=== PATIENT | male | born 1960 | race Two or more races ===

== ENCOUNTER 2017-03-07 12:54 | Inpatient (IN) | payer OTHER ==
[2017-03-07 14:42] VITALS: BMI 18.4
--- NOTE | 2017-03-07 17:18 | HP ---
COWS - Scale Resting Pulse: 0= [place] 80 or Below Sweatin=Flushed/Facial Moisture Restless Observation: 3= Extraneous Movement Pupil Size: 2= Moderately Dilated Bone or Joint Aches: 2= Severe Diffuse Aches Runny Nose/ Eye Tearin= Runny Nose/Eyes GI Upset > 30mins: 3= Vomiting/Diarrhea Tremor Observation: 2= Slight Tremor Visible Yawning Observation: 2= >3x During Session Anxiety or Irritability: 2=Irritable/Anxious Goose Flesh Skin: 0=Smooth Skin COWS Score: 20 CIWA Score - CIWA Score Nausea/Vomitin Muscle Tremors: 3 Anxiety: 3 Agitation: 3 Paroxysmal Sweats: 2 Orientation: 0-Oriented Tacttile Disturbances: 2-Mild Itch/Numbness/Burn Auditory Disturbances: 2-Mild Harshness/Frighten Visual Disturbances: 2-Mild Sensitivity Headache: 2-Mild CIWA-Ar Total Score: 22 Admission ROS BHS - HPI Chief Complaint: I NEED HELP TO STOP USING HEROIN,ALCOHOL AND COCAINE Allergies/Adverse Reactions: Allergies Allergy/AdvReac Type Severity Reaction Status Date / Time No Known Allergies Allergy Verified 03/07/17 17:12 History of Present Illness: THIS 56 YEARS OLD MALE SEEKING HELP TO STOP USING HEROIN,ALCOHOL AND COCAINE, LAST DETOX 01/11 [facility] NOT COMPLETED LONGEST PERIOD SOBRIETY 5 YEARS Exam Limitations: No Limitations - Ebola screening Have you traveled outside of the country in the last 21 days: No Have you had contact with anyone from an Ebola affected area: No Have you been sick,other than usual withdrawal symptoms: No Do you have a fever: No - Review of Systems Constitutional: Chills, Loss of Appetite, Night Sweats, Changes in sleep, Weakness, Unintentional Wgt. Loss EENT: reports: Tearing, Nose Congestion Respiratory: reports: No Symptoms reported, Other (MARTITA) Cardiac: reports: Palpitations GI: reports: Diarrhea, Nausea, Vomiting, Abdominal cramping : reports: No Symptoms Reported Musculoskeletal: reports: Back Pain, Joint Pain, Muscle Pain, Joint Stiffness Integumentary: reports: Dryness Neuro: reports: Headache, Tremors Endocrine: reports: No Symptoms Reported Hematology: reports: No Symptoms Reported Psychiatric: reports: Judgement Intact, Mood/Affect Appropiate, Orientated x3 ( INSOMNIA), Depressed Patient History - Patient Medical History Hx Anemia: No Hx Asthma: Yes (ON ALBUTEROL INHALER) Hx Chronic Obstructive Pulmonary Disease (COPD): No Hx Cancer: No Hx Cardiac Disorders: No Hx Congestive Heart Failure: No Hx Hypertension: No Hx Hypercholesterolemia: No Hx Pacemaker: No HX Cerebrovascular Accident: No Hx Seizures: No Hx Dementia: No Hx Diabetes: No Hx Gastrointestinal Disorders: No Hx Liver Disease: No Hx Genitourinary Disorders: No Hx Sexually Transmitted Disorders: No Hx Renal Disease (ESRD): No Hx Thyroid Disease: No Hx Human Immunodeficiency Virus (HIV): No (LAST 2014 NEGATIVE) Hx Hepatitis C: No Hx Depression: Yes (ANXIETY ) Hx Suicide Attempt: No Hx Bipolar Disorder: No Hx Schizophrenia: No Other Medical History: NO SUICIDAL,NO HOMICIDAL,INSOMNIA - Patient Surgical History Past Surgical History: No - PPD History Previous Implant?: Yes Documented Results: Negative w/proof Implanted On Prior [facility] Admission?: Yes PPD to be Administered?: Yes - Smoking Cessation Smoking history: Current every day smoker Have you smoked in the past 12 months: Yes Aproximately how many cigarettes per day: 10 Cigars Per Day: 0 Hx Chewing Tobacco Use: No Initiated information on smoking cessation: Yes 'Breaking Loose' booklet given: 03/07/17 - Substance & Tx. History Hx Alcohol Use: Yes Hx Substance Use: Yes Substance Use Type: Alcohol, Cocaine, Heroin Hx Substance Use Treatment: Yes ([facility] 09/12 NOT COMPLETED) - Substances Abused Alcohol Route: Oral Frequency: Daily Amount used: LIQUOR- 1 PINT, BEER- 1 SIX PACK Age of first use: 13 Date of Last Use: 03/07/17 Heroin Route: Inhalation Frequency: Daily Amount used: 25 BAGS Age of first use: 17 Date of Last Use: 03/07/17 Crack Route: Smoking Frequency: Daily Amount used: 15 BAGS Age of first use: 25 Date of Last Use: 03/07/17 Family Disease History - Family Disease History Family Disease History: Other: Father (DSA,), Mother (ALCOHOL,) Admission Physical Exam S - Vital Signs Vital Signs: Vital Signs - 24 hr 03/07/17 14:37 Temperature 97 F L Pulse Rate 80 Respiratory 20 Rate Blood Pressure 129/72 - Physical General Appearance: Yes: Moderate Distress, Tremorous, Irritable, Sweating, Anxious HEENTM: Yes: Hearing grossly Normal, Normal ENT Inspection, Nasal Congestion Respiratory: Yes: Lungs Clear, Normal Breath Sounds, No Respiratory Distress Neck: Yes: Supple, Trachea in good position Breast: Yes: Within Normal Limits Cardiology: Yes: Within Normal Limits, Regular Rhythm, Regular Rate, S1, S2 Abdominal: Yes: Within Normal Limits, Normal Bowel Sounds, Non Tender, Flat, Soft Genitourinary: Yes: Within Normal Limits Musculoskeletal: Yes: Within Normal Limits, full range of Motion, Back pain, Joint Stiffness, Muscle Pain Extremities: Yes: Normal Inspection, Normal Range of Motion, Tremors, Other ( OLD INJURY RIGHT KNEE) 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, Fully Oriented, Alert, Motor Strength 5/5 Integumentary: Yes: Dry Lymphatic: Yes: Within Normal Limits - Diagnostic (1) Opioid dependence with withdrawal Current Visit: Yes Status: Acute (2) Alcohol dependence with uncomplicated withdrawal Current Visit: Yes Status: Acute (3) Cocaine dependence Current Visit: Yes Status: Acute (4) Asthma Current Visit: Yes Status: Acute (5) Weight loss Current Visit: Yes Status: Acute (6) Depression Current Visit: Yes Status: Acute (7) Insomnia Current Visit: Yes Status: Acute (8) Right knee injury Current Visit: Yes Status: Acute (9) Nicotine dependence Current Visit: Yes Status: Acute Cleared for Admission S - Detox or Rehab [facility] Level of Care: Medically Managed Detox Regimen/Protocol: Methadone/Librium S Breath Alcohol Content Breath Alcohol Content: 0 Urine Drug Screen - Results Drug Screen Negative: No Urine Drug Screen Results: JESSE-Cocaine, OPI-Opiates, OXY-Oxycodone
[2017-03-07] MEDS ORDERED: LOPERAMIDE HCL 2 MG CAPSULE PO PRN (17:30)
[2017-03-07] MEDS ORDERED: guaiFENesin/D-METHORPHAN HB 10 ML UNIT-DOSE CUPS PO PRN (17:30)
[2017-03-07] MEDS ORDERED: P-EPHED 60MG/TRIPROLIDI 2.5MG TABLET PO PRN (17:30)
[2017-03-07] MEDS ORDERED: hydrOXYzine PAMOATE 25 MG CAPSULE (FP) PO PRN (17:30)
[2017-03-07] MEDS ORDERED: NICOTINE POLACRILEX 2 MG GUM BC PRN (17:30)
[2017-03-07] MEDS ORDERED: MENTHOL/PHENOL 1 EACH UD MM PRN (17:30)
[2017-03-07] MEDS ORDERED: MAGNESIUM CITRATE 300 ML BOTTLE PO PRN (17:30)
[2017-03-07] MEDS ORDERED: diphenhydrAMINE HCL 50 MG CAPSULE PO PRN (17:30)
[2017-03-07] MEDS ORDERED: ACETAMINOPHEN 325 MG TABLET (FP) PO PRN (17:30)
[2017-03-07] MEDS ORDERED: chlordiazePOXIDE HCL 25 MG CAPSULE PO PRN (17:30)
[2017-03-07] MEDS ORDERED: MAG HYDROX/AL HYDROX/SIMETH 30 ML UNIT-DOSE CUP PO PRN (17:30)
[2017-03-07] MEDS ORDERED: MAGNESIUM HYDROX 2400MG/30ML ORAL SUSPENSION 30 ML CUP PO PRN (17:30)
[2017-03-07] MEDS ORDERED: chlordiazePOXIDE HCL 25 MG CAPSULE PO ONE (18:30)
[2017-03-07] MEDS ORDERED: METHADONE HCL 10 MG TABLET (FOR DETOX USE ONLY) PO ONE ×2 (18:30→23:00)
[2017-03-07] MEDS: NICOTINE 21 MG/24 HOURS TOPICAL PATCH TD SCH (19:25)
[2017-03-07] MEDS: ALBUTEROL SO4 6.7 GM HFA INHALER IH PRN (19:26)
[2017-03-07] MEDS: IBUPROFEN 400 MG TABLET (FP) PO PRN (21:04)
[2017-03-07] MEDS: cloNIDine HCL 0.1 MG TABLET PO SCH (22:38)
[2017-03-07] MEDS: chlordiazePOXIDE HCL 25 MG CAPSULE PO SCH (22:38)
[2017-03-07] MEDS: THIAMINE HCL 100 MG TABLET (FP) PO SCH (22:38)
[2017-03-07] MEDS: CYCLOBENZAPRINE HCL 10 MG TABLET (FP) PO PRN (23:20)
[2017-03-07 23:34] LABS: URINE APPEARANCE CLEAR; URINE BILIRUBIN NEGATIVE (NEGATIVE); URINE BLOOD NEGATIVE (NEGATIVE); URINE COLOR AMBER; URINE GLUCOSE (UA) NEGATIVE (NEGATIVE); URINE KETONE TRACE (NEGATIVE); URINE LEUK ESTERASE NEGATIVE (NEGATIVE); URINE NITRITE NEGATIVE (NEGATIVE); URINE UROBILINOGEN 2.0 E.U/dl E.U./dl (0.2-1.0)
[2017-03-07 23:36] LABS: URINE PROTEIN 1+ (NEGATIVE)
[2017-03-07 23:39] LABS: URINE HYALINE CAST 15 /lpf; URINE MUCUS MANY; URINE RBC 1 /hpf (0-3); URINE WBC 1 /hpf (3-5)
[2017-03-07] MEDS: METHYL SALICYLATE/MENTHOL OINT 30 GM TUBE TP SCH (23:47)
[2017-03-08] MEDS: IBUPROFEN 400 MG TABLET (FP) PO PRN (04:00)
[2017-03-08] MEDS: chlordiazePOXIDE HCL 25 MG CAPSULE PO SCH ×4 (04:01→22:53)
[2017-03-08] MEDS ORDERED: METHADONE HCL 10 MG TABLET (FOR DETOX USE ONLY) PO SCH (10:00)
[2017-03-08 10:04] LABS: MCH 31.3 pg (25.7-33.7); MEAN CELL VOLUME 92.1 fl (80-96); MEAN PLT VOLUME 11.3 fl (7.5-11.1); PLATELET COUNT 158 K/MM3 (134-434); RDW 13.2 % (11.9-15.9); WHITE BLOOD COUNT 9.6 K/mm3 (4.0-10.0)
[2017-03-08 10:37] LABS: ALBUMIN 4.5 g/dl (3.4-5.0); ALK PHOS 121 U/L (45-117); ANION GAP 8 (8-16); BILIRUBIN,TOTAL 0.6 mg/dL (0.2-1.0); CALCIUM 9.4 mg/dL (8.5-10.1); CO2 30 mmol/L (21-32); COCKROFT - GAULT 59.97; CREATININE 1.2 mg/dL (0.7-1.3); GLUCOSE,RANDOM 120 mg/dL (74-106); SGOT/AST 24 U/L (15-37); SGPT/ALT 21 U/L (12-78); TOT PROT 7.7 g/dl (6.4-8.2)
--- NOTE | 2017-03-08 10:57 | PN ---
S CIWA - CIWA Score Nausea/Vomitin Muscle Tremors: 3 Anxiety: 3 Paroxysmal Sweats: 1-Minimal Palms Moist Orientation: 0-Oriented Tacttile Disturbances: 1-Very Mild Itch/Numbness Auditory Disturbances: 1-Very Mild Visual Disturbances: 1-Very Mild Sensitivity Headache: 2-Mild BHS COWS - Scale Resting Pulse: 0= [place] 80 or Below Sweatin= Chills/Flushing Restless Observation: 3= Extraneous Movement Pupil Size: 1= Pupils >than Normal Bone or Joint Aches: 2= Severe Diffuse Aches Runny Nose/ Eye Tearin= Runny Nose/Eyes GI Upset > 30mins: 3= Vomiting/Diarrhea Tremor Observation of Outstretched Hands: 2= Slight Tremor Visible Yawning Observation: 1= 1-2x During Session Anxiety or Irritability: 2=Irritable/Anxious Goose Flesh Skin: 0=Smooth Skin COWS Score: 17 BHS Progress Note (SOAP) Subjective: ALERT,IRRITABLE,ANXIOUS,INTERRUPTED SLEEP,PAIN IN THE BODY AND BACK,TREMOR Objective: 03/08/17 10:54 Vital Signs Temperature 98.1 F 03/08/17 06:00 Pulse Rate 71 03/08/17 06:00 Respiratory Rate 16 03/08/17 06:00 Blood Pressure 100/55 03/08/17 06:00 O2 Sat by Pulse Oximetry (%) EKG NSR,INVERTED T IN 1 AND AVL,LVH NO CHEST PAIN,NO SOB,NO DIZZINESS Laboratory Last Values WBC 9.6 K/mm3 (4.0-10.0) 03/08/17 06:00 RBC 4.41 M/mm3 (4.00-5.60) 03/08/17 06:00 Hgb 13.8 GM/dL (11.7-16.9) 03/08/17 06:00 Hct 40.7 % (35.4-49) 03/08/17 06:00 MCV 92.1 fl (80-96) 03/08/17 06:00 MCHC 34.0 g/dl (32.0-35.9) 03/08/17 06:00 RDW 13.2 % (11.9-15.9) 03/08/17 06:00 Plt Count 158 K/MM3 (134-434) 03/08/17 06:00 MPV 11.3 fl (7.5-11.1) H 03/08/17 06:00 Sodium 138 mmol/L (136-145) 03/08/17 06:00 Potassium 3.9 mmol/L (3.5-5.1) 03/08/17 06:00 Chloride 100 mmol/L (98-107) 03/08/17 06:00 Carbon Dioxide 30 mmol/L (21-32) 03/08/17 06:00 Anion Gap 8 (8-16) 03/08/17 06:00 BUN 19 mg/dL (7-18) H 03/08/17 06:00 Creatinine 1.2 mg/dL (0.7-1.3) 03/08/17 06:00 Creat Clearance w eGFR > 60 (>60) 03/08/17 06:00 Random Glucose 120 mg/dL (74-106) H 03/08/17 06:00 Calcium 9.4 mg/dL (8.5-10.1) 03/08/17 06:00 Total Bilirubin 0.6 mg/dL (0.2-1.0) 03/08/17 06:00 AST 24 U/L (15-37) 03/08/17 06:00 ALT 21 U/L (12-78) 03/08/17 06:00 Alkaline Phosphatase 121 U/L (45-117) H 03/08/17 06:00 Total Protein 7.7 g/dl (6.4-8.2) 03/08/17 06:00 Albumin 4.5 g/dl (3.4-5.0) 03/08/17 06:00 Urine Color Vaishali 03/07/17 23:26 Urine Appearance Clear 03/07/17 23:26 Urine pH 5.0 (5.0-8.0) 03/07/17 23:26 Ur Specific [place] >= 1.030 (1.005-1.025) H 03/07/17 23:26 Urine Protein 1+ (NEGATIVE) H 03/07/17 23:26 Urine Glucose (UA) Negative (NEGATIVE) 03/07/17 23:26 Urine Ketones Trace (NEGATIVE) H 03/07/17 23:26 Urine Blood Negative (NEGATIVE) 03/07/17 23: Urine Nitrite Negative (NEGATIVE) 03/07/17 23:26 Urine Bilirubin Negative (NEGATIVE) 03/07/17 23:26 Urine Urobilinogen 2.0 e.u/dl E.U./dl (0.2-1.0) 03/07/17 23:26 Ur Leukocyte Esterase Negative (NEGATIVE) 03/07/17 23:26 Urine RBC 1 /hpf (0-3) 03/07/17 23:26 Urine WBC 1 /hpf (3-5) 03/07/17 23:26 Ur Epithelial Cells Rare /hpf (FEW) 03/07/17 23:26 Hyaline Casts 15 /lpf 03/07/17 23:26 Urine Mucus Many 03/07/17 23:26 RPR Titer Nonreactive (NONREACTIVE) 03/08/17 06:00 Assessment: 03/08/17 10:56 WITHDRAWAL SYMPTOM Plan: CONTINUE DETOX,INITIAL GLUCOSE IS 120,FASTING BLOOD GLUCOSE IN AM
[2017-03-08] MEDS: cloNIDine HCL 0.1 MG TABLET PO SCH ×2 (11:13→22:52)
[2017-03-08] MEDS: PRENATAL VITAMINS W/ FOLIC ACID TABLET (FP) PO SCH (11:13)
[2017-03-08] MEDS: NICOTINE 21 MG/24 HOURS TOPICAL PATCH TD SCH (11:14)
[2017-03-08] MEDS: METHYL SALICYLATE/MENTHOL OINT 30 GM TUBE TP SCH ×2 (11:16→22:52)
--- NOTE | 2017-03-08 11:20 | EKG ---
Test Reason : Blood Pressure : / mmHG Vent. Rate : 066 BPM Atrial Rate : 066 BPM P-R Int : 166 ms QRS Dur : 092 ms QT Int : 384 ms P-R-T Axes : 000 128 128 degrees QTc Int : 402 ms NORMAL SINUS RHYTHM LEFT POSTERIOR FASCICULAR BLOCK VOLTAGE CRITERIA FOR LEFT VENTRICULAR HYPERTROPHY NONSPECIFIC ST ABNORMALITY ABNORMAL ECG NO PREVIOUS ECGS AVAILABLE Confirmed by PHILLIP VALENCIA MD ([id number]) on 03/08/2017 11:20:11 AM Referred By: Confirmed By:PHILLIP VALENCIA MD
[2017-03-08] MEDS: ALBUTEROL SO4 6.7 GM HFA INHALER IH PRN (18:27)
--- NOTE | 2017-03-08 19:27 | CONSULT ---
[facility] Psychiatric Consult - Data Date of interview: 03/08/17 Admission source: [facility] Identifying data: Approached for psychiatric interview.Patient refused.Nursing staff is made aware.
[2017-03-08] MEDS: THIAMINE HCL 100 MG TABLET (FP) PO SCH (22:52)
[2017-03-08] MEDS: CYCLOBENZAPRINE HCL 10 MG TABLET (FP) PO PRN (22:52)
[2017-03-09] MEDS: chlordiazePOXIDE HCL 25 MG CAPSULE PO SCH ×3 (06:19→17:28)
[2017-03-09] MEDS: cloNIDine HCL 0.1 MG TABLET PO SCH ×2 (11:06→22:22)
[2017-03-09] MEDS: PRENATAL VITAMINS W/ FOLIC ACID TABLET (FP) PO SCH (11:06)
[2017-03-09] MEDS: METHADONE HCL 5 MG TABLET (FOR DETOX USE ONLY) PO SCH (11:06)
[2017-03-09] MEDS: METHYL SALICYLATE/MENTHOL OINT 30 GM TUBE TP SCH ×2 (11:07→22:24)
[2017-03-09] MEDS: NICOTINE 21 MG/24 HOURS TOPICAL PATCH TD SCH (11:07)
--- NOTE | 2017-03-09 13:05 | PN ---
S CIWA - CIWA Score Nausea/Vomitin Muscle Tremors: 3 Anxiety: 3 Agitation: 2 Paroxysmal Sweats: 1-Minimal Palms Moist Orientation: 0-Oriented Tacttile Disturbances: 1-Very Mild Itch/Numbness Auditory Disturbances: 1-Very Mild Visual Disturbances: 1-Very Mild Sensitivity Headache: 2-Mild CIWA-Ar Total Score: 17 BHS COWS - Scale Resting Pulse: 0= [place] 80 or Below Sweatin= Chills/Flushing Restless Observation: 3= Extraneous Movement Pupil Size: 1= Pupils >than Normal Bone or Joint Aches: 2= Severe Diffuse Aches Runny Nose/ Eye Tearin= Nasal Congestion GI Upset > 30mins: 2= Nausea/Diarrhea Tremor Observation of Outstretched Hands: 2= Slight Tremor Visible Yawning Observation: 1= 1-2x During Session Anxiety or Irritability: 2=Irritable/Anxious Goose Flesh Skin: 0=Smooth Skin COWS Score: 15 BHS Progress Note (SOAP) Subjective: ALERT,IRRITABLE,ANXIOUS,INTERRUPTED SLEEP,PAIN IN THE BODY AND BACK Objective: 03/09/17 13:04 Vital Signs Temperature 97 F L 03/09/17 10:31 Pulse Rate 64 03/09/17 10:31 Respiratory Rate 16 03/09/17 10:31 Blood Pressure 118/68 03/09/17 10:31 O2 Sat by Pulse Oximetry (%) 03/09/17 13:04 Laboratory Last Values WBC 9.6 K/mm3 (4.0-10.0) 03/08/17 06:00 RBC 4.41 M/mm3 (4.00-5.60) 03/08/17 06:00 Hgb 13.8 GM/dL (11.7-16.9) 03/08/17 06:00 Hct 40.7 % (35.4-49) 03/08/17 06:00 MCV 92.1 fl (80-96) 03/08/17 06:00 MCHC 34.0 g/dl (32.0-35.9) 03/08/17 06:00 RDW 13.2 % (11.9-15.9) 03/08/17 06:00 Plt Count 158 K/MM3 (134-434) 03/08/17 06:00 MPV 11.3 fl (7.5-11.1) H 03/08/17 06:00 Sodium 138 mmol/L (136-145) 03/08/17 06:00 Potassium 3.9 mmol/L (3.5-5.1) 03/08/17 06:00 Chloride 100 mmol/L (98-107) 03/08/17 06:00 Carbon Dioxide 30 mmol/L (21-32) 03/08/17 06:00 Anion Gap 8 (8-16) 03/08/17 06:00 BUN 19 mg/dL (7-18) H 03/08/17 06:00 Creatinine 1.2 mg/dL (0.7-1.3) 03/08/17 06:00 Creat Clearance w eGFR > 60 (>60) 03/08/17 06:00 Random Glucose 120 mg/dL (74-106) H 03/08/17 06:00 Fasting Glucose 90 mg/dL (70-105) 03/09/17 07:40 Calcium 9.4 mg/dL (8.5-10.1) 03/08/17 06:00 Total Bilirubin 0.6 mg/dL (0.2-1.0) 03/08/17 06:00 AST 24 U/L (15-37) 03/08/17 06:00 ALT 21 U/L (12-78) 03/08/17 06:00 Alkaline Phosphatase 121 U/L (45-117) H 03/08/17 06:00 Total Protein 7.7 g/dl (6.4-8.2) 03/08/17 06:00 Albumin 4.5 g/dl (3.4-5.0) 03/08/17 06:00 Urine Color Vaishali 03/07/17 23:26 Urine Appearance Clear 03/07/17 23:26 Urine pH 5.0 (5.0-8.0) 03/07/17 23:26 Ur Specific [place] >= 1.030 (1.005-1.025) H 03/07/17 23:26 Urine Protein 1+ (NEGATIVE) H 03/07/17 23:26 Urine Glucose (UA) Negative (NEGATIVE) 03/07/17 23:26 Urine Ketones Trace (NEGATIVE) H 03/07/17 23:26 Urine Blood Negative (NEGATIVE) 03/07/17 23:26 Urine Nitrite Negative (NEGATIVE) 03/07/17 23:26 Urine Bilirubin Negative (NEGATIVE) 03/07/17 23:26 Urine Urobilinogen 2.0 e.u/dl E.U./dl (0.2-1.0) 03/07/17 23:26 Ur Leukocyte Esterase Negative (NEGATIVE) 03/07/17 23:26 Urine RBC 1 /hpf (0-3) 03/07/17 23:26 Urine WBC 1 /hpf (3-5) 03/07/17 23:26 Ur Epithelial Cells Rare /hpf (FEW) 03/07/17 23:26 Hyaline Casts 15 /lpf 03/07/17 23:26 Urine Mucus Many 03/07/17 23:26 RPR Titer Nonreactive (NONREACTIVE) 03/08/17 06:00 Assessment: 03/09/17 13:05 WITHDRAWAL SYMPTOM Plan: CONTINUE DETOX
[2017-03-09] MEDS: chlordiazePOXIDE 5 MG CAPSULE PO SCH (22:22)
[2017-03-09] MEDS: CYCLOBENZAPRINE HCL 10 MG TABLET (FP) PO PRN (22:22)
[2017-03-09] MEDS: THIAMINE HCL 100 MG TABLET (FP) PO SCH (22:22)
[2017-03-09] MEDS: ALBUTEROL SO4 6.7 GM HFA INHALER IH PRN (22:29)
[2017-03-10] MEDS: chlordiazePOXIDE 5 MG CAPSULE PO SCH ×3 (06:03→17:55)
--- NOTE | 2017-03-10 10:32 | PN ---
BHS Progress Note (SOAP) Subjective: ALERT,IRRITABLE,ANXIOUS,INTERRUPTED SLEEP,PAIN IN THE BODY Objective: 03/10/17 10:32 Vital Signs Temperature 96.9 F L 03/10/17 10:15 Pulse Rate 66 03/10/17 10:15 Respiratory Rate 20 03/10/17 10:15 Blood Pressure 134/74 03/10/17 10:15 O2 Sat by Pulse Oximetry (%) Assessment: 03/10/17 10:32 WITHDRAWAL SYMPTOM Plan: CONTINUE DETOX
[2017-03-10] MEDS: cloNIDine HCL 0.1 MG TABLET PO SCH ×2 (10:39→23:52)
[2017-03-10] MEDS: NICOTINE 21 MG/24 HOURS TOPICAL PATCH TD SCH (10:39)
[2017-03-10] MEDS: METHADONE HCL 5 MG TABLET (FOR DETOX USE ONLY) PO SCH (10:39)
[2017-03-10] MEDS: METHYL SALICYLATE/MENTHOL OINT 30 GM TUBE TP SCH ×2 (10:39→22:31)
[2017-03-10] MEDS: PRENATAL VITAMINS W/ FOLIC ACID TABLET (FP) PO SCH (10:40)
[2017-03-10] MEDS: ALBUTEROL SO4 6.7 GM HFA INHALER IH PRN (18:17)
[2017-03-10] MEDS: THIAMINE HCL 100 MG TABLET (FP) PO SCH (22:31)
[2017-03-10] MEDS: chlordiazePOXIDE HCL 10 MG CAPSULE PO SCH (22:34)
[2017-03-11] MEDS: chlordiazePOXIDE HCL 10 MG CAPSULE PO SCH ×3 (05:47→17:46)
[2017-03-11] MEDS ORDERED: METHADONE HCL 10 MG TABLET (FOR DETOX USE ONLY) PO SCH (10:00)
[2017-03-11] MEDS: PRENATAL VITAMINS W/ FOLIC ACID TABLET (FP) PO SCH (10:25)
[2017-03-11] MEDS: cloNIDine HCL 0.1 MG TABLET PO SCH ×2 (10:26→22:15)
[2017-03-11] MEDS: METHYL SALICYLATE/MENTHOL OINT 30 GM TUBE TP SCH ×2 (10:27→22:15)
[2017-03-11] MEDS: NICOTINE 21 MG/24 HOURS TOPICAL PATCH TD SCH (10:27)
--- NOTE | 2017-03-11 11:09 | PN ---
BHS Progress Note (SOAP) Subjective: sweats irritable Objective: 03/11/17 11:08 Vital Signs Temperature 96.4 F L 03/11/17 09:42 Pulse Rate 86 03/11/17 09:42 Respiratory Rate 18 03/11/17 09:42 Blood Pressure 112/70 03/11/17 09:42 O2 Sat by Pulse Oximetry (%) awake/alert ambulating no acute distress Assessment: 03/11/17 11:08 withdrawal sx Plan: continue detox increase fluids d/c in am
[2017-03-11] MEDS: ALBUTEROL SO4 6.7 GM HFA INHALER IH PRN (20:45)
[2017-03-11] MEDS: THIAMINE HCL 100 MG TABLET (FP) PO SCH (22:16)
[2017-03-12] MEDS ORDERED: METHADONE HCL 5 MG TABLET (FOR DETOX USE ONLY) PO SCH (06:00)
--- NOTE | 2017-03-12 08:46 | PN ---
S Progress Note (SOAP) Subjective: ALERT,NO COMPLAINT Objective: 03/12/17 08:45 Vital Signs Temperature 97.7 F 03/12/17 06:00 Pulse Rate 87 03/12/17 06:00 Respiratory Rate 16 03/12/17 06:00 Blood Pressure 122/73 03/12/17 06:00 O2 Sat by Pulse Oximetry (%) Assessment: 03/12/17 08:45 DETOX COMPLETED,NO WITHDRAWAL SYMPTOM Plan: DISCHARGE TODAY,FOLLOW UP WITH [facility]
--- NOTE | 2017-03-12 08:50 | DS ---
[facility] Detox Discharge Summary Admission Date: 03/07/17 Discharge Date: 03/12/17 - History Present History: Alcohol Dependence, Cocaine Dependence, Opioid Dependence Additional Comments: FOLLOW UP WITH AFTER CARE PROGRAM ARRANGEMENT AND PMD FOR MEDICAL PROBLEM Pertinent Past History: ASTHMA WEIGHT LOSS OLD RIGHT KNEE INJURY NICOTINE DEPENDENCE - Physical Exam Results Vital Signs: Vital Signs Temperature 97.7 F 03/12/17 06:00 Pulse Rate 87 03/12/17 06:00 Respiratory Rate 16 03/12/17 06:00 Blood Pressure 122/73 03/12/17 06:00 O2 Sat by Pulse Oximetry (%) Pertinent Admission Physical Exam Findings: WITHDRAWAL SYMPTOM - Treatment Hospital Course: Detox Protocol Followed, Detoxed Safely, Responded well, Discharged Condition Good Patient has Accepted a Rehab Referral to: [facility] - Medication Discharge Medications: Ambulatory Orders NK [No Known Home Medication] 03/07/17 - Diagnosis (1) Opioid dependence with withdrawal Current Visit: Yes Status: Acute (2) Alcohol dependence with uncomplicated withdrawal Current Visit: Yes Status: Acute (3) Cocaine dependence Current Visit: Yes Status: Acute (4) Asthma Current Visit: Yes Status: Acute (5) Weight loss Current Visit: Yes Status: Acute (6) Depression Current Visit: Yes Status: Acute (7) Insomnia Current Visit: Yes Status: Acute (8) Right knee injury Current Visit: Yes Status: Acute (9) Nicotine dependence Current Visit: Yes Status: Acute - AMA Did Patient Leave Against Medical Advice: No
[2017-03-12 09:47] VITALS: BP 120/68; PULSE 82; TEMP 97.5
[2017-03-12] MEDS: cloNIDine HCL 0.1 MG TABLET PO SCH (10:55)
[2017-03-12] MEDS: PRENATAL VITAMINS W/ FOLIC ACID TABLET (FP) PO SCH (10:55)
[2017-03-12] MEDS: ALBUTEROL SO4 6.7 GM HFA INHALER IH PRN (10:59)
[2017-03-12] MEDS: METHYL SALICYLATE/MENTHOL OINT 30 GM TUBE TP SCH (11:00)
[2017-03-12] MEDS: NICOTINE 21 MG/24 HOURS TOPICAL PATCH TD SCH (11:00)
== END 2017-03-12 11:04 | disposition home or self-care (01) | DRG 773 ==
LOC: YASAS 12:54 → Y6N 17:33
PROVIDERS: ADMIT Internal Medicine Addiction Medicine; ATTEND Internal Medicine Addiction Medicine
PROC: HZ2ZZZZ Detoxification Services for Substance Abuse Treatment (ICD-10-PCS; principal; 2017-03-07)
DX: F11.23 Opioid dependence with withdrawal (principal); F10.230 Alcohol dependence with withdrawal, uncomplicated; F14.20 Cocaine dependence, uncomplicated; F17.210 Nicotine dependence, cigarettes, uncomplicated; F32.9 Major depressive disorder, single episode, unspecified; J45.909 Unspecified asthma, uncomplicated; G47.00 Insomnia, unspecified; Z87.898 Personal history of other specified conditions
CPT/HCPCS: 36415; 80053; 81003; 81015; 82947; 85027; 86593; 93005; 93010

== ENCOUNTER 2017-05-16 09:14 | Inpatient (IN) | payer OTHER ==
[2017-05-16 10:43] VITALS: BMI 19.2
--- NOTE | 2017-05-16 15:43 | HP ---
COWS - Scale Resting Pulse: 0= [place] 80 or Below Sweatin= Chills/Flushing Restless Observation: 3= Extraneous Movement Pupil Size: 2= Moderately Dilated Bone or Joint Aches: 4=Acute Joint/Muscle Pain Runny Nose/ Eye Tearin= Nasal Congestion GI Upset > 30mins: 1= Stomach Cramp Tremor Observation: 2= Slight Tremor Visible Yawning Observation: 2= >3x During Session Anxiety or Irritability: 1=Feels Anxious/Irritable Goose Flesh Skin: 0=Smooth Skin COWS Score: 17 CIWA Score - CIWA Score Nausea/Vomitin-No Nausea/No Vomiting Muscle Tremors: 4-Moderate,w/Arms Extend Anxiety: 4-Mod. Anxious/Guarded Agitation: 4-Moderately Restless Paroxysmal Sweats: 1-Minimal Palms Moist Orientation: 0-Oriented Tacttile Disturbances: 3-Moderate Itch/Numb/Burn Auditory Disturbances: 0-None Visual Disturbances: 0-None Headache: 2-Mild CIWA-Ar Total Score: 18 Admission ROS S - HPI Chief Complaint: DETOX TX FOR HEROIN,AND ALCOHOL DEPENDENCE Allergies/Adverse Reactions: Allergies Allergy/AdvReac Type Severity Reaction Status Date / Time No Known Allergies Allergy Verified 05/16/17 13:25 History of Present Illness: 56 Y/O AA/MALE WITH A HX OF HEROIN, ALCOHOL,COCAINE AND XANAX(NEGATIVE TOX TODAY ) DEPENDENCE SEEKING DETOX TX Exam Limitations: No Limitations - Ebola screening Have you traveled outside of the country in the last 21 days: No Have you had contact with anyone from an Ebola affected area: No Have you been sick,other than usual withdrawal symptoms: No - Review of Systems Constitutional: Chills, Loss of Appetite, Night Sweats, Changes in sleep, Unintentional Wgt. Loss EENT: reports: Blurred Vision, Tearing, Nose Congestion, Dental Problems ( MISSING TEETH; TEETH IN POOR REPAIR) Respiratory: reports: Shortness of Breath (MDI), Wheezing Cardiac: reports: Lightheadedness GI: reports: Constipated, Diarrhea, Nausea, Poor Appetite, Poor Fluid Intake, Vomiting : reports: No Symptoms Reported Musculoskeletal: reports: Back Pain, Joint Pain, Muscle Pain Integumentary: reports: No Symptoms Reported Neuro: reports: Headache, Unsteady Gait, Dizziness Endocrine: reports: No Symptoms Reported Hematology: reports: No Symptoms Reported Psychiatric: reports: Anxious Other Systems: Reviewed and Negative Patient History - Patient Medical History Hx Anemia: No Hx Asthma: Yes (MDI) Hx Chronic Obstructive Pulmonary Disease (COPD): No Hx Cancer: No Hx Cardiac Disorders: No Hx Congestive Heart Failure: No Hx Hypertension: No Hx Hypercholesterolemia: No Hx Pacemaker: No HX Cerebrovascular Accident: No Hx Seizures: No Hx Dementia: No Hx Diabetes: No Hx Gastrointestinal Disorders: Yes (acid reflux) Hx Liver Disease: No Hx Genitourinary Disorders: No Hx Sexually Transmitted Disorders: No Hx Renal Disease (ESRD): No Hx Thyroid Disease: No Hx Human Immunodeficiency Virus (HIV): No ( NEGATIVE HX) Hx Hepatitis C: No Hx Depression: Yes (NO CURRENT MED) Hx Suicide Attempt: No (DENIES) Hx Bipolar Disorder: No Hx Schizophrenia: No - Patient Surgical History Past Surgical History: No Hx Neurologic Surgery: No Hx Cataract Extraction: No Hx Cardiac Surgery: No Hx Lung Surgery: No Hx Breast Surgery: No Hx Breast Biopsy: No Hx Abdominal Surgery: No Hx Appendectomy: No Hx Cholecystectomy: No Hx Genitourinary Surgery: No Hx Orthopedic Surgery: No Anesthesia Reaction: No - PPD History Previous Implant?: Yes Documented Results: Negative w/proof Implanted On Prior [facility] Admission?: Yes Date: 03/09/17 Results: 0 mm PPD to be Administered?: No - Reproductive History Patient is a Female of Child Bearing Age (11 -55 yrs old): No (MALE) Patient : (N/C) - Smoking Cessation Smoking history: Current every day smoker Have you smoked in the past 12 months: Yes Aproximately how many cigarettes per day: 10 Cigars Per Day: 0 Hx Chewing Tobacco Use: No Initiated information on smoking cessation: Yes 'Breaking Loose' booklet given: 05/16/17 - Substance & Tx. History Hx Alcohol Use: Yes (VODKA/BEER) Hx Substance Use: Yes (HEROIN/XANAX/CRACK) Substance Use Type: Alcohol, Cocaine, Heroin, Tranquilizers Hx Substance Use Treatment: Yes (LAST TX AT [facility] DETOX) - Substances Abused Heroin Route: Inhalation Frequency: Daily Amount used: 30 bags Age of first use: 18 Date of Last Use: 05/16/17 Crack Route: Smoking Frequency: Daily Amount used: $100 Age of first use: 25 Date of Last Use: 05/14/17 Alcohol-vodka/beer Route: Oral Frequency: Daily Amount used: 1/2 pt./1-6 pk. Age of first use: 17 Date of Last Use: 05/15/17 Xanax Route: Oral Frequency: 3-6 times per week Amount used: 2 mg. Age of first use: 53 Date of Last Use: 05/16/17 Family Disease History - Family Disease History Family Disease History: Other: Father (DSA,), Mother (ALCOHOL,) Admission Physical Exam [facility] - Vital Signs Vital Signs: Vital Signs - 24 hr 05/16/17 10:41 Temperature 97.2 F L Pulse Rate 73 Respiratory 20 Rate Blood Pressure 119/72 - Physical General Appearance: Yes: Moderate Distress, Thin, Irritable, Anxious HEENTM: Yes: EOMI, Normocephalic, NATHANIEL, Nasal Congestion Respiratory: Yes: Chest Non-Tender, Lungs Clear, Normal Breath Sounds, No Respiratory Distress Neck: Yes: No masses,lesions,Nodules, Supple, Trachea in good position Cardiology: Yes: Regular Rhythm, Regular Rate, S1, S2 Abdominal: Yes: Normal Bowel Sounds, Non Tender, Flat, Soft Genitourinary: Yes: Other (N/C) Back: Yes: Within Normal Limits Musculoskeletal: Yes: full range of Motion, Gait Steady Extremities: Yes: Normal Range of Motion, Non-Tender 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, Fully Oriented, Alert Integumentary: Yes: Dry, Warm Lymphatic: Yes: Within Normal Limits - Diagnostic (1) Alcohol dependence with uncomplicated withdrawal Current Visit: Yes Status: Acute (2) Asthma Current Visit: Yes Status: Chronic Qualifiers: Asthma severity: mild intermittent Asthma complication type: uncomplicated Qualified Code(s): J45.20 - Mild intermittent asthma, uncomplicated (3) Nicotine dependence Current Visit: Yes Status: Acute Qualifiers: Nicotine product type: cigarettes Substance use status: in withdrawal Qualified Code(s): F17.213 - Nicotine dependence, cigarettes, with withdrawal (4) Opioid dependence with withdrawal Current Visit: Yes Status: Acute (5) Weight loss Current Visit: Yes Status: Chronic (6) Cocaine dependence, uncomplicated Current Visit: Yes Status: Acute (7) GERD (gastroesophageal reflux disease) Current Visit: Yes Status: Chronic Qualifiers: Esophagitis presence: without esophagitis Qualified Code(s): K21.9 - Gastro-esophageal reflux disease without esophagitis Cleared for Admission [facility] - Detox or Rehab [facility] Level of Care: Medically Managed Detox Regimen/Protocol: Methadone/Librium [facility] Breath Alcohol Content Breath Alcohol Content: 0 Urine Drug Screen - Results Drug Screen Negative: No Urine Drug Screen Results: JESSE-Cocaine, OPI-Opiates
[2017-05-16] MEDS ORDERED: P-EPHED 60MG/TRIPROLIDI 2.5MG TABLET PO PRN (15:54)
[2017-05-16] MEDS ORDERED: chlordiazePOXIDE HCL 25 MG CAPSULE PO PRN (15:54)
[2017-05-16] MEDS ORDERED: MAGNESIUM CITRATE 300 ML BOTTLE PO PRN (15:54)
[2017-05-16] MEDS ORDERED: NICOTINE POLACRILEX 2 MG GUM BC PRN (15:54)
[2017-05-16] MEDS ORDERED: MENTHOL/PHENOL 1 EACH UD MM PRN (15:54)
[2017-05-16] MEDS ORDERED: LOPERAMIDE HCL 2 MG CAPSULE PO PRN (15:54)
[2017-05-16] MEDS ORDERED: chlordiazePOXIDE HCL 25 MG CAPSULE PO ONE (15:54)
[2017-05-16] MEDS ORDERED: MAGNESIUM HYDROX 2400MG/30ML ORAL SUSPENSION 30 ML CUP PO PRN (15:54)
[2017-05-16] MEDS ORDERED: guaiFENesin/D-METHORPHAN HB 10 ML UNIT-DOSE CUPS PO PRN (15:54)
[2017-05-16] MEDS ORDERED: MAG HYDROX/AL HYDROX/SIMETH 30 ML UNIT-DOSE CUP PO PRN (15:54)
[2017-05-16] MEDS: NICOTINE 14 MG/24 HOURS TOPICAL PATCH TD SCH (17:00)
[2017-05-16] MEDS ORDERED: METHADONE HCL 10 MG TABLET (FOR DETOX USE ONLY) PO ONE ×2 (17:00→23:00)
[2017-05-16] MEDS: chlordiazePOXIDE HCL 25 MG CAPSULE PO SCH ×2 (17:00→22:30)
[2017-05-16 21:07] LABS: URINE APPEARANCE CLEAR; URINE BILIRUBIN NEGATIVE (NEGATIVE); URINE BLOOD NEGATIVE (NEGATIVE); URINE COLOR YELLOW; URINE GLUCOSE (UA) NEGATIVE (NEGATIVE); URINE KETONE NEGATIVE (NEGATIVE); URINE LEUK ESTERASE NEGATIVE (NEGATIVE); URINE NITRITE NEGATIVE (NEGATIVE); URINE PROTEIN NEGATIVE (NEGATIVE); URINE UROBILINOGEN NEGATIVE mg/dL (0.2-1.0)
[2017-05-16] MEDS: THIAMINE HCL 100 MG TABLET (FP) PO SCH (22:30)
[2017-05-16] MEDS: diphenhydrAMINE HCL 50 MG CAPSULE PO PRN (22:30)
[2017-05-17] MEDS: chlordiazePOXIDE HCL 25 MG CAPSULE PO SCH ×4 (05:48→22:25)
[2017-05-17] MEDS: ALBUTEROL SO4 6.7 GM HFA INHALER IH PRN ×2 (07:34→15:44)
[2017-05-17] MEDS ORDERED: METHADONE HCL 10 MG TABLET (FOR DETOX USE ONLY) PO SCH (10:00)
[2017-05-17 10:23] LABS: MCH 31.6 pg (25.7-33.7); MCHC 33.9 g/dl (32.0-35.9); MEAN CELL VOLUME 93.1 fl (80-96); MEAN PLT VOLUME 10.5 fl (7.5-11.1); PLATELET COUNT 183 K/MM3 (134-434); WHITE BLOOD COUNT 6.7 K/mm3 (4.0-10.0)
--- NOTE | 2017-05-17 10:24 | EKG ---
Test Reason : Blood Pressure : / mmHG Vent. Rate : 061 BPM Atrial Rate : 061 BPM P-R Int : 158 ms QRS Dur : 084 ms QT Int : 402 ms P-R-T Axes : 076 078 067 degrees QTc Int : 404 ms NORMAL SINUS RHYTHM POSSIBLE LEFT ATRIAL ENLARGEMENT ST ELEVATION, CONSIDER EARLY REPOLARIZATION, PERICARDITIS, OR INJURY ABNORMAL ECG Confirmed by MD DELFINO, TONIA ([id number]) on 05/17/2017 10:23:58 AM Referred By: Confirmed By:TONIA SALEH MD
[2017-05-17] MEDS: PRENATAL VITAMINS W/ FOLIC ACID TABLET (FP) PO SCH (10:40)
[2017-05-17 10:42] LABS: ALBUMIN 3.5 g/dl (3.4-5.0); ALK PHOS 121 U/L (45-117); ANION GAP 7 (8-16); BILIRUBIN,TOTAL 0.2 mg/dL (0.2-1.0); CO2 30 mmol/L (21-32); CREATININE 1.1 mg/dL (0.7-1.3); GLUCOSE,RANDOM 84 mg/dL (74-106); SGOT/AST 15 U/L (15-37); SGPT/ALT 17 U/L (12-78)
[2017-05-17] MEDS: NICOTINE 14 MG/24 HOURS TOPICAL PATCH TD SCH (10:42)
--- NOTE | 2017-05-17 12:33 | CONSULT ---
[facility] Psychiatric Consult - Data Date of interview: 05/17/17 Admission source: [facility] Identifying data: Patient refused to talk to psychiatrist.Nursing staff is made aware.
--- NOTE | 2017-05-17 13:07 | PN ---
[facility] CIWA - CIWA Score Nausea/Vomitin-No Nausea/No Vomiting Muscle Tremors: 4-Moderate,w/Arms Extend Anxiety: 3 Agitation: 1-Slight > Activity Paroxysmal Sweats: 3 Orientation: 2-Disoriented Date<2 days Tacttile Disturbances: 0-None Auditory Disturbances: 3-Moderate Harsh/Frighten Visual Disturbances: 0-None Headache: 3-Moderate CIWA-Ar Total Score: 19 BHS COWS - Scale Resting Pulse: 0= [place] 80 or Below Sweatin= Chills/Flushing Restless Observation: 0= Sits Still Pupil Size: 0= Normal to Room Light Bone or Joint Aches: 2= Severe Diffuse Aches Runny Nose/ Eye Tearin= Runny Nose/Eyes GI Upset > 30mins: 1= Stomach Cramp Tremor Observation of Outstretched Hands: 2= Slight Tremor Visible Yawning Observation: 1= 1-2x During Session Anxiety or Irritability: 2=Irritable/Anxious Goose Flesh Skin: 3=Piloerection COWS Score: 14 S Progress Note (SOAP) Subjective: Tremors, Fatigue, Sweating, H/A, Lower Back ache. Objective: PT. A & O X 2 (DISORIENTED ABOUT DAY / DATE). PT. OBSERVED AMBULATING ON UNIT. NO ACUTE DISTRESS. 05/17/17 13:05 Vital Signs Temperature 95.9 F L 05/17/17 09:17 Pulse Rate 79 05/17/17 09:17 Respiratory Rate 20 05/17/17 09:17 Blood Pressure 119/71 05/17/17 09:17 O2 Sat by Pulse Oximetry (%) Laboratory Tests 05/16/17 05/17/17 05/17/17 18:15 05:45 05:45 WBC 6.7 D RBC 4.40 Hgb 13.9 Hct 41.0 MCV 93.1 MCH 31.6 MCHC 33.9 RDW 13.0 Plt Count 183 MPV 10.5 Sodium 141 Potassium 4.0 Chloride 104 Carbon Dioxide 30 Anion Gap 7 L BUN 12 D Creatinine 1.1 Creat Clearance w eGFR > 60 Random Glucose 84 D Calcium 9.0 Total Bilirubin 0.2 D AST 15 D ALT 17 Alkaline Phosphatase 121 H Total Protein 7.0 Albumin 3.5 D Urine Color Yellow Urine Appearance Clear Urine pH 6.0 Ur Specific [place] 1.020 Urine Protein Negative Urine Glucose (UA) Negative Urine Ketones Negative Urine Blood Negative Urine Nitrite Negative Urine Bilirubin Negative Urine Urobilinogen Negative Ur Leukocyte Esterase Negative LABS NOTED. RPR RESULT PENDING. 05/17/17 13:07 Assessment: 05/17/17 13:06 WITHDRAWAL SYMPTOMS. Plan: CONTINUE DETOX.
[2017-05-17] MEDS: diphenhydrAMINE HCL 50 MG CAPSULE PO PRN (22:25)
[2017-05-17] MEDS: THIAMINE HCL 100 MG TABLET (FP) PO SCH (22:25)
[2017-05-18] MEDS: ACETAMINOPHEN 325 MG TABLET (FP) PO PRN ×2 (03:36→22:00)
[2017-05-18] MEDS: chlordiazePOXIDE HCL 25 MG CAPSULE PO SCH ×2 (05:28→10:17)
[2017-05-18] MEDS: PRENATAL VITAMINS W/ FOLIC ACID TABLET (FP) PO SCH (10:16)
[2017-05-18] MEDS: METHADONE HCL 5 MG TABLET (FOR DETOX USE ONLY) PO SCH (10:16)
[2017-05-18] MEDS: NICOTINE 14 MG/24 HOURS TOPICAL PATCH TD SCH (10:17)
--- NOTE | 2017-05-18 14:24 | PN ---
[facility] CIWA - CIWA Score Nausea/Vomitin Muscle Tremors: 4-Moderate,w/Arms Extend Anxiety: 3 Agitation: 1-Slight > Activity Paroxysmal Sweats: 3 Orientation: 2-Disoriented Date<2 days Tacttile Disturbances: 0-None Auditory Disturbances: 2-Mild Harshness/Frighten Visual Disturbances: 1-Very Mild Sensitivity Headache: 0-None Present CIWA-Ar Total Score: 19 BHS COWS - Scale Resting Pulse: 0= [place] 80 or Below Sweatin= Chills/Flushing Restless Observation: 0= Sits Still Pupil Size: 0= Normal to Room Light Bone or Joint Aches: 2= Severe Diffuse Aches Runny Nose/ Eye Tearin= Runny Nose/Eyes GI Upset > 30mins: 2= Nausea/Diarrhea Tremor Observation of Outstretched Hands: 2= Slight Tremor Visible Yawning Observation: 1= 1-2x During Session Anxiety or Irritability: 2=Irritable/Anxious Goose Flesh Skin: 3=Piloerection COWS Score: 15 [facility] Progress Note (SOAP) Subjective: Body aches, Nausea, Fatigue, Sweating, Tremors. Objective: PT. A & O X 2 (DISORIENTED ABOUT DAY /DATE). PT. OBSERVED AMBULATING ON UNIT. NO ACUTE DISTRESS. 05/18/17 14:22 Vital Signs Temperature 97.7 F 05/18/17 10:00 Pulse Rate 74 05/18/17 10:00 Respiratory Rate 18 05/18/17 10:00 Blood Pressure 114/76 05/18/17 10:00 O2 Sat by Pulse Oximetry (%) Laboratory Tests 05/16/17 05/17/17 05/17/17 18:15 05:45 05:45 WBC 6.7 D RBC 4.40 Hgb 13.9 Hct 41.0 MCV 93.1 MCH 31.6 MCHC 33.9 RDW 13.0 Plt Count 183 MPV 10.5 Sodium 141 Potassium 4.0 Chloride 104 Carbon Dioxide 30 Anion Gap 7 L BUN 12 D Creatinine 1.1 Creat Clearance w eGFR > 60 Random Glucose 84 D Calcium 9.0 Total Bilirubin 0.2 D AST 15 D ALT 17 Alkaline Phosphatase 121 H Total Protein 7.0 Albumin 3.5 D Urine Color Yellow Urine Appearance Clear Urine pH 6.0 Ur Specific [place] 1.020 Urine Protein Negative Urine Glucose (UA) Negative Urine Ketones Negative Urine Blood Negative Urine Nitrite Negative Urine Bilirubin Negative Urine Urobilinogen Negative Ur Leukocyte Esterase Negative RPR Titer 05/17/17 05:45 WBC RBC Hgb Hct MCV MCH MCHC RDW Plt Count MPV Sodium Potassium Chloride Carbon Dioxide Anion Gap BUN Creatinine Creat Clearance w eGFR Random Glucose Calcium Total Bilirubin AST ALT Alkaline Phosphatase Total Protein Albumin Urine Color Urine Appearance Urine pH Ur Specific [place] Urine Protein Urine Glucose (UA) Urine Ketones Urine Blood Urine Nitrite Urine Bilirubin Urine Urobilinogen Ur Leukocyte Esterase RPR Titer Nonreactive LABS NOTED. Assessment: 05/18/17 14:23 WITHDRAWAL SYMPTOMS. Plan: CONTINUE DETOX.
[2017-05-18] MEDS: ALBUTEROL SO4 6.7 GM HFA INHALER IH PRN ×2 (15:06→21:19)
[2017-05-18] MEDS: chlordiazePOXIDE 5 MG CAPSULE PO SCH ×2 (17:37→22:00)
[2017-05-18] MEDS: diphenhydrAMINE HCL 50 MG CAPSULE PO PRN (22:00)
[2017-05-18] MEDS: THIAMINE HCL 100 MG TABLET (FP) PO SCH (22:00)
[2017-05-19] MEDS: chlordiazePOXIDE 5 MG CAPSULE PO SCH ×2 (05:17→10:40)
[2017-05-19] MEDS: PRENATAL VITAMINS W/ FOLIC ACID TABLET (FP) PO SCH (10:38)
[2017-05-19] MEDS: NICOTINE 14 MG/24 HOURS TOPICAL PATCH TD SCH (10:38)
[2017-05-19] MEDS: METHADONE HCL 5 MG TABLET (FOR DETOX USE ONLY) PO SCH (10:39)
[2017-05-19] MEDS ORDERED: BISACODYL 5 MG TABLET.DR (FP) PO ONE (11:56)
--- NOTE | 2017-05-19 14:17 | PN ---
BHS Progress Note (SOAP) Subjective: Sweating, chills, constipation (had hard stool yesterday and prefers dulcolax), anxious Objective: 05/19/17 14:15 Last Vital Signs Temp Pulse Resp BP Pulse Ox 96.7 F L 74 18 113/71 05/19/17 14:10 05/19/17 14:10 05/19/17 14:10 05/19/17 14:10 Laboratory Tests 05/16/17 05/17/17 05/17/17 18:15 05:45 05:45 WBC 6.7 D RBC 4.40 Hgb 13.9 Hct 41.0 MCV 93.1 MCH 31.6 MCHC 33.9 RDW 13.0 Plt Count 183 MPV 10.5 Sodium 141 Potassium 4.0 Chloride 104 Carbon Dioxide 30 Anion Gap 7 L BUN 12 D Creatinine 1.1 Creat Clearance w eGFR > 60 Random Glucose 84 D Calcium 9.0 Total Bilirubin 0.2 D AST 15 D ALT 17 Alkaline Phosphatase 121 H Total Protein 7.0 Albumin 3.5 D Urine Color Yellow Urine Appearance Clear Urine pH 6.0 Ur Specific [place] 1.020 Urine Protein Negative Urine Glucose (UA) Negative Urine Ketones Negative Urine Blood Negative Urine Nitrite Negative Urine Bilirubin Negative Urine Urobilinogen Negative Ur Leukocyte Esterase Negative RPR Titer 05/17/17 05:45 WBC RBC Hgb Hct MCV MCH MCHC RDW Plt Count MPV Sodium Potassium Chloride Carbon Dioxide Anion Gap BUN Creatinine Creat Clearance w eGFR Random Glucose Calcium Total Bilirubin AST ALT Alkaline Phosphatase Total Protein Albumin Urine Color Urine Appearance Urine pH Ur Specific [place] Urine Protein Urine Glucose (UA) Urine Ketones Urine Blood Urine Nitrite Urine Bilirubin Urine Urobilinogen Ur Leukocyte Esterase RPR Titer Nonreactive Labs noted Assessment: 05/19/17 14:15 Withdrawal symptoms C/O Constipation Plan: Continue detox, encouraged to drink lots of water for hydration Acute constipation: dulcolax 10mg PO x 1 dose, water pitcher ordered
[2017-05-19] MEDS: ALBUTEROL SO4 6.7 GM HFA INHALER IH PRN ×2 (17:24→21:37)
[2017-05-19] MEDS: chlordiazePOXIDE HCL 10 MG CAPSULE PO SCH ×2 (17:24→22:16)
[2017-05-19] MEDS: diphenhydrAMINE HCL 50 MG CAPSULE PO PRN (22:16)
[2017-05-19] MEDS: THIAMINE HCL 100 MG TABLET (FP) PO SCH (22:16)
[2017-05-20] MEDS: ACETAMINOPHEN 325 MG TABLET (FP) PO PRN (01:12)
[2017-05-20] MEDS: ALBUTEROL SO4 6.7 GM HFA INHALER IH PRN ×2 (05:41→17:18)
[2017-05-20] MEDS: chlordiazePOXIDE HCL 10 MG CAPSULE PO SCH ×2 (05:42→10:03)
[2017-05-20] MEDS: IBUPROFEN 400 MG TABLET (FP) PO PRN ×2 (05:42→22:48)
[2017-05-20] MEDS ORDERED: METHADONE HCL 10 MG TABLET (FOR DETOX USE ONLY) PO SCH (10:00)
[2017-05-20] MEDS: PRENATAL VITAMINS W/ FOLIC ACID TABLET (FP) PO SCH (10:03)
[2017-05-20] MEDS: NICOTINE 14 MG/24 HOURS TOPICAL PATCH TD SCH (10:04)
--- NOTE | 2017-05-20 12:15 | PN ---
BHS Progress Note (SOAP) Subjective: Nausea, Interrupted sleep, Tremors, Body Aches, H/A, Sweating. Objective: PT. A & OX 3. NO ACUTE DISTRESS. 05/20/17 12:14 Vital Signs Temperature 96.5 F L 05/20/17 09:16 Pulse Rate 73 05/20/17 09:16 Respiratory Rate 18 05/20/17 09:16 Blood Pressure 115/71 05/20/17 09:16 O2 Sat by Pulse Oximetry (%) Laboratory Tests 05/16/17 05/17/17 05/17/17 18:15 05:45 05:45 WBC 6.7 D RBC 4.40 Hgb 13.9 Hct 41.0 MCV 93.1 MCH 31.6 MCHC 33.9 RDW 13.0 Plt Count 183 MPV 10.5 Sodium 141 Potassium 4.0 Chloride 104 Carbon Dioxide 30 Anion Gap 7 L BUN 12 D Creatinine 1.1 Creat Clearance w eGFR > 60 Random Glucose 84 D Calcium 9.0 Total Bilirubin 0.2 D AST 15 D ALT 17 Alkaline Phosphatase 121 H Total Protein 7.0 Albumin 3.5 D Urine Color Yellow Urine Appearance Clear Urine pH 6.0 Ur Specific [place] 1.020 Urine Protein Negative Urine Glucose (UA) Negative Urine Ketones Negative Urine Blood Negative Urine Nitrite Negative Urine Bilirubin Negative Urine Urobilinogen Negative Ur Leukocyte Esterase Negative RPR Titer 05/17/17 05:45 WBC RBC Hgb Hct MCV MCH MCHC RDW Plt Count MPV Sodium Potassium Chloride Carbon Dioxide Anion Gap BUN Creatinine Creat Clearance w eGFR Random Glucose Calcium Total Bilirubin AST ALT Alkaline Phosphatase Total Protein Albumin Urine Color Urine Appearance Urine pH Ur Specific [place] Urine Protein Urine Glucose (UA) Urine Ketones Urine Blood Urine Nitrite Urine Bilirubin Urine Urobilinogen Ur Leukocyte Esterase RPR Titer Nonreactive LABS NOTED. Assessment: 05/20/17 12:14 WITHDRAWAL SYMPTOMS. Plan: CONTINUE DETOX.
[2017-05-20] MEDS: THIAMINE HCL 100 MG TABLET (FP) PO SCH (22:17)
[2017-05-20] MEDS: diphenhydrAMINE HCL 50 MG CAPSULE PO PRN (22:17)
[2017-05-21] MEDS: ACETAMINOPHEN 325 MG TABLET (FP) PO PRN (00:21)
[2017-05-21] MEDS ORDERED: METHADONE HCL 5 MG TABLET (FOR DETOX USE ONLY) PO SCH (06:00)
[2017-05-21 06:40] VITALS: BP 117/75; PULSE 73; TEMP 97
--- NOTE | 2017-05-21 12:34 | DS ---
[facility] Detox Discharge Summary Admission Date: 05/16/17 Discharge Date: 05/21/17 - History Present History: Alcohol Dependence, Cocaine Dependence, Opioid Dependence Additional Comments: DETOX COMPLETED. PT D/C'D EARLIER TODAY. PT INSTRUCTED TO FOLLOW UP AT [facility] FOR MEDICAL CARE WHEN NEEDED. Pertinent Past History: ASTHMA GERD WT LOSS - Physical Exam Results Vital Signs: Vital Signs Temperature 97.0 F L 05/21/17 06:40 Pulse Rate 73 05/21/17 06:40 Respiratory Rate 18 05/21/17 06:40 Blood Pressure 117/75 05/21/17 06:40 O2 Sat by Pulse Oximetry (%) Pertinent Admission Physical Exam Findings: WITHDRAWAL SX - Treatment Hospital Course: Detox Protocol Followed, Detoxed Safely, Responded well, Discharged Condition Good, Rehab Referral Accepted Patient has Accepted a Rehab Referral to: [facility] - Medication Discharge Medications: Ambulatory Orders Albuterol Sulfate Inhaler - [Ventolin Hfa Inhaler -] 2 inh PO Q4H PRN 05/16/17 - Diagnosis (1) Alcohol dependence with uncomplicated withdrawal Status: Acute (2) Asthma Status: Chronic Qualifiers: Asthma severity: mild intermittent Asthma complication type: uncomplicated Qualified Code(s): J45.20 - Mild intermittent asthma, uncomplicated (3) Nicotine dependence Status: Acute Qualifiers: Nicotine product type: cigarettes Substance use status: in withdrawal Qualified Code(s): F17.213 - Nicotine dependence, cigarettes, with withdrawal (4) Opioid dependence with withdrawal Status: Acute (5) Weight loss Status: Chronic (6) Cocaine dependence, uncomplicated Status: Acute (7) GERD (gastroesophageal reflux disease) Status: Chronic Qualifiers: Esophagitis presence: without esophagitis Qualified Code(s): K21.9 - Gastro-esophageal reflux disease without esophagitis - AMA Did Patient Leave Against Medical Advice: No
== END 2017-05-21 08:59 | disposition home or self-care (01) | DRG 773 ==
LOC: YASAS 09:14 → Y3N 14:02
PROVIDERS: ADMIT Internal Medicine Addiction Medicine; ATTEND Internal Medicine Addiction Medicine
PROC: HZ2ZZZZ Detoxification Services for Substance Abuse Treatment (ICD-10-PCS; principal; 2017-05-21)
DX: F11.23 Opioid dependence with withdrawal (principal); F10.230 Alcohol dependence with withdrawal, uncomplicated; F14.20 Cocaine dependence, uncomplicated; F17.213 Nicotine dependence, cigarettes, with withdrawal; J45.20 Mild intermittent asthma, uncomplicated; K21.9 Gastro-esophageal reflux disease without esophagitis; R63.4 Abnormal weight loss; Z68.1 Body mass index [BMI] 19.9 or less, adult
CPT/HCPCS: 36415; 80053; 81003; 85027; 86593; 93005; 93010

== ENCOUNTER 2018-04-27 09:36 | Inpatient (IN) | payer OTHER ==
[2018-04-27 10:00] VITALS: BMI 20.6
--- NOTE | 2018-04-27 11:23 | HP ---
COWS - Scale Resting Pulse: 0= [place] 80 or Below Sweatin=Flushed/Facial Moisture Restless Observation: 1= Difficult to Sit Still Pupil Size: 0= Normal to Room Light Bone or Joint Aches: 1= Mild Discomfort Runny Nose/ Eye Tearin= Nasal Congestion GI Upset > 30mins: 1= Stomach Cramp Tremor Observation: 1= Tremor [place], Not Seen Yawning Observation: 1= 1-2x During Session Anxiety or Irritability: 1=Feels Anxious/Irritable Goose Flesh Skin: 0=Smooth Skin COWS Score: 9 CIWA Score - CIWA Score Nausea/Vomitin Muscle Tremors: 3 Anxiety: 3 Agitation: 3 Paroxysmal Sweats: 3 Orientation: 0-Oriented Tacttile Disturbances: 0-None Auditory Disturbances: 0-None Visual Disturbances: 0-None Headache: 0-None Present CIWA-Ar Total Score: 15 Admission ROS BHS - HPI Chief Complaint: "I need help stopping" Allergies/Adverse Reactions: Allergies Allergy/AdvReac Type Severity Reaction Status Date / Time No Known Allergies Allergy Verified 05/16/17 13:25 History of Present Illness: 57 y/o male with a long hx of poly substance addiction presents here for detox. Pt was last here last year, endorses a eight month sober period because he was in a program but relapsed soon after "when he was kicked out because of non- compliance". Pt is self-referred, last drink and heroin use was yesterday. Hx of Asthma Says he has been talking to a psych MD but does not recollect his diagnosis(es). Denies SI in the past nor current. Exam Limitations: No Limitations - Ebola screening Have you traveled outside of the country in the last 21 days: No (N) Have you had contact with anyone from an Ebola affected area: No Have you been sick,other than usual withdrawal symptoms: No Do you have a fever: No - Review of Systems Constitutional: Unintentional Wgt. Loss EENT: reports: Nose Congestion, Other (missing teeth - no dentures) Respiratory: reports: No Symptoms reported Cardiac: reports: No Symptoms Reported GI: reports: Constipated (Last BM 2 days ago, but feels like he is "backed up") : reports: No Symptoms Reported Musculoskeletal: reports: Other (chronic elbow, knee and back pain) Neuro: reports: No Symptoms reported Endocrine: reports: No Symptoms Reported Hematology: reports: No Symptoms Reported Psychiatric: reports: Mood/Affect Appropiate, Orientated x3, Anxious Other Systems: Reviewed and Negative Patient History - Patient Medical History Hx Anemia: No Hx Asthma: Yes (MDI - on Albuterol) Hx Chronic Obstructive Pulmonary Disease (COPD): No Hx Cancer: No Hx Cardiac Disorders: No Hx Congestive Heart Failure: No Hx Hypertension: No Hx Hypercholesterolemia: No Hx Pacemaker: No HX Cerebrovascular Accident: No Hx Seizures: No Hx Dementia: No Hx Diabetes: No Hx Gastrointestinal Disorders: Yes (acid reflux - not on meds) Hx Liver Disease: No Hx Genitourinary Disorders: No Hx Sexually Transmitted Disorders: No Hx Renal Disease (ESRD): No Hx Thyroid Disease: No Hx Human Immunodeficiency Virus (HIV): No ( NEGATIVE HX ) Hx Hepatitis C: No Hx Depression: Yes (NO CURRENT MED) Hx Suicide Attempt: No (DENIES) Hx Bipolar Disorder: No Hx Schizophrenia: No - Patient Surgical History Past Surgical History: No Hx Neurologic Surgery: No Hx Cataract Extraction: No Hx Cardiac Surgery: No Hx Lung Surgery: No Hx Breast Surgery: No Hx Breast Biopsy: No Hx Abdominal Surgery: No Hx Appendectomy: No Hx Cholecystectomy: No Hx Genitourinary Surgery: No Hx Section: No Hx Orthopedic Surgery: No Anesthesia Reaction: No - PPD History Previous Implant?: Yes Documented Results: Negative w/proof Implanted On Prior [facility] Admission?: Yes Date: 03/09/17 Results: 0 mm PPD to be Administered?: Yes - Reproductive History Patient is a Female of Child Bearing Age (11 -55 yrs old): No - Smoking Cessation Smoking history: Current every day smoker Have you smoked in the past 12 months: Yes Aproximately how many cigarettes per day: 10 Cigars Per Day: 0 Hx Chewing Tobacco Use: No Initiated information on smoking cessation: Yes 'Breaking Loose' booklet given: 04/27/18 - Substance & Tx. History Hx Alcohol Use: Yes Hx Substance Use: Yes Substance Use Type: Alcohol, Cocaine, Heroin Hx Substance Use Treatment: Yes (2016) - Substances Abused Alcohol Route: Oral Frequency: Daily Amount used: 4 (24oz) cans of beer; vodka -1/4pint Age of first use: 13 Date of Last Use: 04/26/17 Crack Route: Smoking Frequency: Daily Amount used: 7 wraps Age of first use: 26 Date of Last Use: 04/26/18 Heroin Route: Inhalation Frequency: Daily Amount used: 25bags Age of first use: 19 Date of Last Use: 04/26/18 Family Disease History - Family Disease History Family Disease History: Other: Father (Drugs,), Mother (ALCOHOL, ) Admission Physical Exam [facility] - Vital Signs Vital Signs: Vital Signs - 24 hr 04/27/18 09:57 Temperature 97.7 F Pulse Rate 74 Respiratory 20 Rate Blood Pressure 147/79 - Physical General Appearance: Yes: Moderate Distress, Irritable, Anxious HEENTM: Yes: Nasal Congestion, Other (missing upper and lower premolar and molar. Teeth with cavity) Respiratory: Yes: Chest Non-Tender, Lungs Clear, Normal Breath Sounds, No Respiratory Distress Neck: Yes: Within Normal Limits Breast: Yes: Breast Exam Deferred Cardiology: Yes: Regular Rate Abdominal: Yes: Normal Bowel Sounds, Non Tender, Soft Genitourinary: Yes: Within Normal Limits Back: Yes: Within Normal Limits, Normal Inspection Musculoskeletal: Yes: full range of Motion, Gait Steady Extremities: Yes: Within Normal Limits, Normal Capillary Refill Neurological: Yes: Fully Oriented, Alert, Motor Strength 5/5 Integumentary: Yes: Normal Color, Warm Lymphatic: Yes: Within Normal Limits - Diagnostic (1) Alcohol dependence with uncomplicated withdrawal Current Visit: Yes Status: Acute (2) Cocaine dependence, uncomplicated Current Visit: Yes Status: Chronic (3) Nicotine dependence Current Visit: Yes Status: Acute Qualifiers: Nicotine product type: cigarettes Substance use status: in withdrawal Qualified Code(s): F17.213 - Nicotine dependence, cigarettes, with withdrawal (4) Opioid dependence with withdrawal Current Visit: Yes Status: Acute (5) Asthma Current Visit: Yes Status: Chronic Qualifiers: Asthma severity: mild intermittent Asthma complication type: uncomplicated Qualified Code(s): J45.20 - Mild intermittent asthma, uncomplicated (6) Low body mass index (BMI) Current Visit: Yes Status: Acute Cleared for Admission [facility] - Detox or Rehab [facility] Level of Care: Medically Managed Detox Regimen/Protocol: Methadone/Librium S Breath Alcohol Content Breath Alcohol Content: 0 Urine Drug Screen - Results Drug Screen Negative: No Urine Drug Screen Results: JESSE-Cocaine, OPI-Opiates, TCA-Tricyclic Antidepress
[2018-04-27] MEDS ORDERED: hydrOXYzine PAMOATE 50 MG CAPSULE (FP) PO PRN (11:55)
[2018-04-27] MEDS ORDERED: LOPERAMIDE HCL 2 MG CAPSULE PO PRN (11:55)
[2018-04-27] MEDS ORDERED: P-EPHED 60MG/TRIPROLIDI 2.5MG TABLET PO PRN (11:55)
[2018-04-27] MEDS ORDERED: guaiFENesin/D-METHORPHAN HB 10 ML UNIT-DOSE CUPS PO PRN (11:55)
[2018-04-27] MEDS ORDERED: MENTHOL/PHENOL 1 EACH UD MM PRN (11:55)
[2018-04-27] MEDS ORDERED: MAG HYDROX/AL HYDROX/SIMETH 30 ML UNIT-DOSE CUP PO PRN (11:55)
[2018-04-27] MEDS ORDERED: ACETAMINOPHEN 325 MG TABLET (FP) PO PRN (11:55)
[2018-04-27] MEDS ORDERED: MAGNESIUM HYDROX 2400MG/30ML ORAL SUSPENSION 30 ML CUP PO PRN (11:55)
[2018-04-27] MEDS ORDERED: MAGNESIUM CITRATE 300 ML BOTTLE PO PRN (11:55)
[2018-04-27] MEDS ORDERED: NICOTINE POLACRILEX 2 MG GUM BUC PRN (11:55)
[2018-04-27] MEDS ORDERED: IBUPROFEN 400 MG TABLET (FP) PO PRN (11:55)
[2018-04-27] MEDS ORDERED: METHADONE HCL 10 MG TABLET (FOR DETOX USE ONLY) PO ONE ×2 (11:55→23:00)
[2018-04-27] MEDS ORDERED: ALBUTEROL SO4 2.5/IPRATROPIUM 0.5 INH SOL 3 ML VIAL.NEB. NEB PRN (11:59)
[2018-04-27] MEDS ORDERED: ALBUTEROL SO4 8 GM HFA INHALER IH PRN (13:39)
[2018-04-27] MEDS: chlordiazePOXIDE HCL 25 MG CAPSULE PO PRN (14:17)
[2018-04-27] MEDS: NICOTINE 14 MG/24 HOURS TOPICAL PATCH TD SCH (14:24)
[2018-04-27] MEDS: chlordiazePOXIDE HCL 25 MG CAPSULE PO SCH ×2 (17:57→22:34)
[2018-04-27 20:15] LABS: URINE APPEARANCE CLOUDY; URINE BILIRUBIN 1+ (<2.0 mg/dL); URINE COLOR YELLOW; URINE GLUCOSE (UA) NEGATIVE (NEGATIVE); URINE KETONE TRACE (NEGATIVE)
[2018-04-27 20:16] LABS: PH,URINE 5.5 (5.0-8.0); URINE LEUK ESTERASE NEGATIVE (NEGATIVE); URINE NITRITE NEGATIVE (NEGATIVE)
[2018-04-27] MEDS: THIAMINE HCL 100 MG TABLET (FP) PO SCH (22:34)
[2018-04-28] MEDS: chlordiazePOXIDE HCL 25 MG CAPSULE PO SCH ×4 (05:52→22:05)
[2018-04-28 10:00] LABS: HEMATOCRIT 39.6 % (35.4-49); HEMOGLOBIN 13.5 GM/dL (11.7-16.9); MCH 30.6 pg (25.7-33.7); MCHC 34.1 g/dl (32.0-35.9); MEAN CELL VOLUME 89.9 fl (80-96); MEAN PLT VOLUME 10.2 fl (7.5-11.1); PLATELET COUNT 166 K/MM3 (134-434); RBC 4.41 M/mm3 (4.00-5.60); WHITE BLOOD COUNT 5.4 K/mm3 (4.0-10.0)
[2018-04-28] MEDS ORDERED: METHADONE HCL 10 MG TABLET (FOR DETOX USE ONLY) PO SCH (10:00)
[2018-04-28] MEDS: NICOTINE 14 MG/24 HOURS TOPICAL PATCH TD SCH (10:09)
[2018-04-28] MEDS: PRENATAL VITAMINS W/ FOLIC ACID TABLET (FP) PO SCH (10:09)
--- NOTE | 2018-04-28 10:44 | PN ---
S CIWA - CIWA Score Nausea/Vomitin-No Nausea/No Vomiting Muscle Tremors: 4-Moderate,w/Arms Extend Anxiety: 4-Mod. Anxious/Guarded Agitation: 4-Moderately Restless Paroxysmal Sweats: 1-Minimal Palms Moist Orientation: 0-Oriented Tacttile Disturbances: 0-None Auditory Disturbances: 0-None Visual Disturbances: 0-None Headache: 0-None Present CIWA-Ar Total Score: 13 S COWS - Scale Resting Pulse: 0= [place] 80 or Below Sweatin= Chills/Flushing Restless Observation: 0= Sits Still Pupil Size: 2= Moderately Dilated Bone or Joint Aches: 1= Mild Discomfort Runny Nose/ Eye Tearin= None GI Upset > 30mins: 0= None Tremor Observation of Outstretched Hands: 2= Slight Tremor Visible Yawning Observation: 1= 1-2x During Session Anxiety or Irritability: 2=Irritable/Anxious Goose Flesh Skin: 0=Smooth Skin COWS Score: 9 S Progress Note (SOAP) Subjective: ANXIETY,TREMORS,FATIGUE. Objective: 04/28/18 10:49 Vital Signs 04/28/18 04/28/18 04/28/18 03:30 06:15 06:30 Temperature 96.9 F L Pulse Rate 56 L Respiratory 18 16 18 Rate Blood Pressure 109/64 04/28/18 10:30 Temperature 96.2 F L Pulse Rate 77 Respiratory 18 Rate Blood Pressure 115/67 Laboratory Tests 04/27/18 04/28/18 13:11 07:31 WBC 5.4 RBC 4.41 Hgb 13.5 Hct 39.6 MCV 89.9 MCH 30.6 MCHC 34.1 RDW 13.0 Plt Count 166 MPV 10.2 Urine Color Yellow Urine Appearance Cloudy Urine pH 5.5 Ur Specific [place] 1.030 Urine Protein 100 mg/dl Urine Glucose (UA) Negative Urine Ketones Trace H Urine Blood Negative Urine Nitrite Negative Urine Bilirubin 1+ H Urine Urobilinogen 1.0 Ur Leukocyte Esterase Negative Assessment: 04/28/18 10:49 WITHDRAWAL SX Plan: CONTINUE DETOX
[2018-04-28 10:49] LABS: CHLORIDE 106 mmol/L (98-107); SODIUM 140 mmol/L (136-145)
--- NOTE | 2018-04-28 10:51 | EKG ---
Test Reason : Blood Pressure : / mmHG Vent. Rate : 061 BPM Atrial Rate : 061 BPM P-R Int : 186 ms QRS Dur : 086 ms QT Int : 412 ms P-R-T Axes : 068 076 068 degrees QTc Int : 414 ms NORMAL SINUS RHYTHM ST ELEVATION, CONSIDER EARLY REPOLARIZATION BORDERLINE ECG WHEN COMPARED WITH ECG OF 16-MAY-2017 15:36, NO SIGNIFICANT CHANGE WAS FOUND Confirmed by BREE QURESHI MD ([id number]) on 04/28/2018 10:51:31 AM Referred By: Confirmed By:BREE QURESHI MD
[2018-04-28 11:03] LABS: ALBUMIN 3.1 g/dl (3.4-5.0); ALK PHOS 92 U/L (45-117); ANION GAP 6 (8-16); BILIRUBIN,TOTAL 0.3 mg/dL (0.2-1.0); BLOOD UREA NITROGEN 12 mg/dL (7-18); CALCIUM 8.3 mg/dL (8.5-10.1); CO2 28 mmol/L (21-32); CREATININE 0.8 mg/dL (0.7-1.3); GLUCOSE,RANDOM 93 mg/dL (74-106); SGOT/AST 16 U/L (15-37); SGPT/ALT 16 U/L (12-78); TOT PROT 5.9 g/dl (6.4-8.2)
[2018-04-28] MEDS: MELATONIN 5 MG TABLETS PO PRN (22:05)
[2018-04-28] MEDS: THIAMINE HCL 100 MG TABLET (FP) PO SCH (22:05)
[2018-04-29] MEDS: chlordiazePOXIDE HCL 25 MG CAPSULE PO SCH ×2 (06:13→10:05)
[2018-04-29] MEDS: PRENATAL VITAMINS W/ FOLIC ACID TABLET (FP) PO SCH (10:05)
[2018-04-29] MEDS: NICOTINE 14 MG/24 HOURS TOPICAL PATCH TD SCH (10:05)
[2018-04-29] MEDS: METHADONE HCL 5 MG TABLET (FOR DETOX USE ONLY) PO SCH (10:05)
--- NOTE | 2018-04-29 10:25 | PN ---
[facility] CIWA - CIWA Score Nausea/Vomitin-No Nausea/No Vomiting Muscle Tremors: 4-Moderate,w/Arms Extend Anxiety: 4-Mod. Anxious/Guarded Agitation: 3 Paroxysmal Sweats: 1-Minimal Palms Moist Orientation: 0-Oriented Tacttile Disturbances: 0-None Auditory Disturbances: 0-None Visual Disturbances: 0-None Headache: 0-None Present CIWA-Ar Total Score: 12 S COWS - Scale Resting Pulse: 0= [place] 80 or Below Sweatin= Chills/Flushing Restless Observation: 3= Extraneous Movement Pupil Size: 2= Moderately Dilated Bone or Joint Aches: 1= Mild Discomfort Runny Nose/ Eye Tearin= None GI Upset > 30mins: 0= None Tremor Observation of Outstretched Hands: 1= Tremor [place], Not Seen Yawning Observation: 1= 1-2x During Session Anxiety or Irritability: 1=Feels Anxious/Irritable Goose Flesh Skin: 0=Smooth Skin COWS Score: 10 S Progress Note (SOAP) Subjective: C/O SWEATS ,FATIGUE , INTERMITTENT SLEEP. Objective: 04/29/18 10:24 Vital Signs 04/29/18 04/29/18 03:30 06:10 Temperature 97.5 F L Pulse Rate 58 L Respiratory 18 18 Rate Blood Pressure 110/68 Laboratory Tests 04/27/18 04/28/18 04/28/18 13:11 07:31 07:31 WBC 5.4 RBC 4.41 Hgb 13.5 Hct 39.6 MCV 89.9 MCH 30.6 MCHC 34.1 RDW 13.0 Plt Count 166 MPV 10.2 Sodium 140 Potassium 4.0 Chloride 106 Carbon Dioxide 28 Anion Gap 6 L BUN 12 Creatinine 0.8 Creat Clearance w eGFR > 60 Random Glucose 93 Calcium 8.3 L Total Bilirubin 0.3 AST 16 ALT 16 Alkaline Phosphatase 92 Total Protein 5.9 L Albumin 3.1 L Urine Color Yellow Urine Appearance Cloudy Urine pH 5.5 Ur Specific [place] 1.030 Urine Protein 100 mg/dl Urine Glucose (UA) Negative Urine Ketones Trace H Urine Blood Negative Urine Nitrite Negative Urine Bilirubin 1+ H Urine Urobilinogen 1.0 Ur Leukocyte Esterase Negative RPR Titer 04/28/18 07:31 WBC RBC Hgb Hct MCV MCH MCHC RDW Plt Count MPV Sodium Potassium Chloride Carbon Dioxide Anion Gap BUN Creatinine Creat Clearance w eGFR Random Glucose Calcium Total Bilirubin AST ALT Alkaline Phosphatase Total Protein Albumin Urine Color Urine Appearance Urine pH Ur Specific [place] Urine Protein Urine Glucose (UA) Urine Ketones Urine Blood Urine Nitrite Urine Bilirubin Urine Urobilinogen Ur Leukocyte Esterase RPR Titer Nonreactive Assessment: 04/29/18 10:24 WITHDRAWAL SX Plan: CONTINUE DETOX INCREASE PO FLUIDS
[2018-04-29] MEDS: ALBUTEROL SO4 8 GM HFA INHALER IH PRN ×2 (12:03→22:11)
[2018-04-29] MEDS: chlordiazePOXIDE 5 MG CAPSULE PO SCH ×2 (18:10→22:10)
[2018-04-29] MEDS: chlordiazePOXIDE HCL 25 MG CAPSULE PO PRN (20:27)
[2018-04-29] MEDS: THIAMINE HCL 100 MG TABLET (FP) PO SCH (22:10)
[2018-04-29] MEDS: MELATONIN 5 MG TABLETS PO PRN (22:12)
[2018-04-30] MEDS: chlordiazePOXIDE 5 MG CAPSULE PO SCH ×2 (05:26→10:09)
[2018-04-30] MEDS: PRENATAL VITAMINS W/ FOLIC ACID TABLET (FP) PO SCH (10:09)
[2018-04-30] MEDS: METHADONE HCL 5 MG TABLET (FOR DETOX USE ONLY) PO SCH (10:09)
[2018-04-30] MEDS: NICOTINE 14 MG/24 HOURS TOPICAL PATCH TD SCH (10:11)
--- NOTE | 2018-04-30 17:20 | PN ---
B[facility] Progress Note (SOAP) Subjective: Sweating, Fatigue, Anxious, Interrupted Sleep. Objective: PATIENT A & O X 3. NO ACUTE DISTRESS. 04/30/18 17:19 Vital Signs Temperature 97.0 F L 04/30/18 13:12 Pulse Rate 68 04/30/18 13:12 Respiratory Rate 18 04/30/18 13:12 Blood Pressure 115/70 04/30/18 13:12 O2 Sat by Pulse Oximetry (%) Laboratory Tests 04/27/18 04/28/18 04/28/18 13:11 07:31 07:31 WBC 5.4 RBC 4.41 Hgb 13.5 Hct 39.6 MCV 89.9 MCH 30.6 MCHC 34.1 RDW 13.0 Plt Count 166 MPV 10.2 Sodium 140 Potassium 4.0 Chloride 106 Carbon Dioxide 28 Anion Gap 6 L BUN 12 Creatinine 0.8 Creat Clearance w eGFR > 60 Random Glucose 93 Calcium 8.3 L Total Bilirubin 0.3 AST 16 ALT 16 Alkaline Phosphatase 92 Total Protein 5.9 L Albumin 3.1 L Urine Color Yellow Urine Appearance Cloudy Urine pH 5.5 Ur Specific [place] 1.030 Urine Protein 100 mg/dl Urine Glucose (UA) Negative Urine Ketones Trace H Urine Blood Negative Urine Nitrite Negative Urine Bilirubin 1+ H Urine Urobilinogen 1.0 Ur Leukocyte Esterase Negative RPR Titer 04/28/18 07:31 WBC RBC Hgb Hct MCV MCH MCHC RDW Plt Count MPV Sodium Potassium Chloride Carbon Dioxide Anion Gap BUN Creatinine Creat Clearance w eGFR Random Glucose Calcium Total Bilirubin AST ALT Alkaline Phosphatase Total Protein Albumin Urine Color Urine Appearance Urine pH Ur Specific [place] Urine Protein Urine Glucose (UA) Urine Ketones Urine Blood Urine Nitrite Urine Bilirubin Urine Urobilinogen Ur Leukocyte Esterase RPR Titer Nonreactive LABS NOTED. Assessment: 04/30/18 17:19 WITHDRAWAL SYMPTOMS. Plan: CONTINUE DETOX. INCREASE DAILY PO FLUID INTAKE.
[2018-04-30] MEDS: chlordiazePOXIDE HCL 10 MG CAPSULE PO SCH ×2 (17:47→22:31)
[2018-04-30] MEDS: ALBUTEROL SO4 8 GM HFA INHALER IH PRN (20:32)
[2018-04-30] MEDS: MELATONIN 5 MG TABLETS PO PRN (22:31)
[2018-04-30] MEDS: THIAMINE HCL 100 MG TABLET (FP) PO SCH (22:31)
[2018-05-01] MEDS: chlordiazePOXIDE HCL 10 MG CAPSULE PO SCH ×2 (05:45→10:17)
[2018-05-01] MEDS ORDERED: METHADONE HCL 10 MG TABLET (FOR DETOX USE ONLY) PO SCH (10:00)
[2018-05-01] MEDS: PRENATAL VITAMINS W/ FOLIC ACID TABLET (FP) PO SCH (10:17)
[2018-05-01] MEDS: NICOTINE 14 MG/24 HOURS TOPICAL PATCH TD SCH (10:18)
--- NOTE | 2018-05-01 10:36 | PN ---
[facility] Progress Note (SOAP) Subjective: PT C/O TEARY EYES, BODY ACHES ,FATIGUE. Objective: 05/01/18 10:36 Vital Signs 05/01/18 05/01/18 05/01/18 03:30 06:13 09:12 Temperature 97.1 F L 97.7 F Pulse Rate 62 78 Respiratory 18 18 18 Rate Blood Pressure 102/66 119/77 Laboratory Tests 04/27/18 04/28/18 04/28/18 13:11 07:31 07:31 WBC 5.4 RBC 4.41 Hgb 13.5 Hct 39.6 MCV 89.9 MCH 30.6 MCHC 34.1 RDW 13.0 Plt Count 166 MPV 10.2 Sodium 140 Potassium 4.0 Chloride 106 Carbon Dioxide 28 Anion Gap 6 L BUN 12 Creatinine 0.8 Creat Clearance w eGFR > 60 Random Glucose 93 Calcium 8.3 L Total Bilirubin 0.3 AST 16 ALT 16 Alkaline Phosphatase 92 Total Protein 5.9 L Albumin 3.1 L Urine Color Yellow Urine Appearance Cloudy Urine pH 5.5 Ur Specific [place] 1.030 Urine Protein 100 mg/dl Urine Glucose (UA) Negative Urine Ketones Trace H Urine Blood Negative Urine Nitrite Negative Urine Bilirubin 1+ H Urine Urobilinogen 1.0 Ur Leukocyte Esterase Negative RPR Titer 04/28/18 07:31 WBC RBC Hgb Hct MCV MCH MCHC RDW Plt Count MPV Sodium Potassium Chloride Carbon Dioxide Anion Gap BUN Creatinine Creat Clearance w eGFR Random Glucose Calcium Total Bilirubin AST ALT Alkaline Phosphatase Total Protein Albumin Urine Color Urine Appearance Urine pH Ur Specific [place] Urine Protein Urine Glucose (UA) Urine Ketones Urine Blood Urine Nitrite Urine Bilirubin Urine Urobilinogen Ur Leukocyte Esterase RPR Titer Nonreactive Assessment: 05/01/18 10:36 WITHDRAWAL SX Plan: CONTINUE DETOX
[2018-05-01] MEDS: ALBUTEROL SO4 8 GM HFA INHALER IH PRN (14:09)
[2018-05-01] MEDS: MELATONIN 5 MG TABLETS PO PRN (22:29)
[2018-05-01] MEDS: THIAMINE HCL 100 MG TABLET (FP) PO SCH (22:29)
[2018-05-02] MEDS: ALBUTEROL SO4 8 GM HFA INHALER IH PRN (04:42)
[2018-05-02] MEDS ORDERED: METHADONE HCL 5 MG TABLET (FOR DETOX USE ONLY) PO SCH (06:00)
[2018-05-02 09:22] VITALS: BP 117/80; PULSE 71; TEMP 97.8
[2018-05-02] MEDS: PRENATAL VITAMINS W/ FOLIC ACID TABLET (FP) PO SCH (10:03)
[2018-05-02] MEDS: NICOTINE 14 MG/24 HOURS TOPICAL PATCH TD SCH (10:04)
--- NOTE | 2018-05-02 10:06 | PN ---
[facility] Progress Note (SOAP) Subjective: DETOX COMPLETED. ALERT O X 3. NAD. REFERRED TO [facility] Objective: 05/02/18 10:04 Vital Signs 05/02/18 05/02/18 05/02/18 03:30 06:35 09:22 Temperature 97.6 F 97.8 F Pulse Rate 75 71 Respiratory 18 18 18 Rate Blood Pressure 101/63 117/80 Laboratory Tests 04/27/18 04/28/18 04/28/18 13:11 07:31 07:31 WBC 5.4 RBC 4.41 Hgb 13.5 Hct 39.6 MCV 89.9 MCH 30.6 MCHC 34.1 RDW 13.0 Plt Count 166 MPV 10.2 Sodium 140 Potassium 4.0 Chloride 106 Carbon Dioxide 28 Anion Gap 6 L BUN 12 Creatinine 0.8 Creat Clearance w eGFR > 60 Random Glucose 93 Calcium 8.3 L Total Bilirubin 0.3 AST 16 ALT 16 Alkaline Phosphatase 92 Total Protein 5.9 L Albumin 3.1 L Urine Color Yellow Urine Appearance Cloudy Urine pH 5.5 Ur Specific [place] 1.030 Urine Protein 100 mg/dl Urine Glucose (UA) Negative Urine Ketones Trace H Urine Blood Negative Urine Nitrite Negative Urine Bilirubin 1+ H Urine Urobilinogen 1.0 Ur Leukocyte Esterase Negative RPR Titer 04/28/18 07:31 WBC RBC Hgb Hct MCV MCH MCHC RDW Plt Count MPV Sodium Potassium Chloride Carbon Dioxide Anion Gap BUN Creatinine Creat Clearance w eGFR Random Glucose Calcium Total Bilirubin AST ALT Alkaline Phosphatase Total Protein Albumin Urine Color Urine Appearance Urine pH Ur Specific [place] Urine Protein Urine Glucose (UA) Urine Ketones Urine Blood Urine Nitrite Urine Bilirubin Urine Urobilinogen Ur Leukocyte Esterase RPR Titer Nonreactive Assessment: 05/02/18 10:04 MEDICALLY STABLE Plan: D/C PT TODAY TO REHAB.
--- NOTE | 2018-05-02 10:08 | DS ---
[facility] Detox Discharge Summary Admission Date: 04/27/18 Discharge Date: 05/02/18 - History Present History: Alcohol Dependence, Opioid Dependence Additional Comments: DETOX COMPLETED. ALERT O X 3. NAD. Pertinent Past History: PLEASE SEE DX BELOW - Physical Exam Results Vital Signs: Vital Signs Temperature 97.8 F 05/02/18 09:22 Pulse Rate 71 05/02/18 09:22 Respiratory Rate 18 05/02/18 09:22 Blood Pressure 117/80 05/02/18 09:22 O2 Sat by Pulse Oximetry (%) Pertinent Admission Physical Exam Findings: WITHDRAWAL SX Laboratory Tests 04/27/18 04/28/18 04/28/18 13:11 07:31 07:31 WBC 5.4 RBC 4.41 Hgb 13.5 Hct 39.6 MCV 89.9 MCH 30.6 MCHC 34.1 RDW 13.0 Plt Count 166 MPV 10.2 Sodium 140 Potassium 4.0 Chloride 106 Carbon Dioxide 28 Anion Gap 6 L BUN 12 Creatinine 0.8 Creat Clearance w eGFR > 60 Random Glucose 93 Calcium 8.3 L Total Bilirubin 0.3 AST 16 ALT 16 Alkaline Phosphatase 92 Total Protein 5.9 L Albumin 3.1 L Urine Color Yellow Urine Appearance Cloudy Urine pH 5.5 Ur Specific [place] 1.030 Urine Protein 100 mg/dl Urine Glucose (UA) Negative Urine Ketones Trace H Urine Blood Negative Urine Nitrite Negative Urine Bilirubin 1+ H Urine Urobilinogen 1.0 Ur Leukocyte Esterase Negative RPR Titer 04/28/18 07:31 WBC RBC Hgb Hct MCV MCH MCHC RDW Plt Count MPV Sodium Potassium Chloride Carbon Dioxide Anion Gap BUN Creatinine Creat Clearance w eGFR Random Glucose Calcium Total Bilirubin AST ALT Alkaline Phosphatase Total Protein Albumin Urine Color Urine Appearance Urine pH Ur Specific [place] Urine Protein Urine Glucose (UA) Urine Ketones Urine Blood Urine Nitrite Urine Bilirubin Urine Urobilinogen Ur Leukocyte Esterase RPR Titer Nonreactive - Treatment Hospital Course: Detox Protocol Followed, Detoxed Safely, Responded well, Discharged Condition Good, Rehab Referral Accepted Patient has Accepted a Rehab Referral to: [facility] - Medication Discharge Medications: Ambulatory Orders Albuterol Sulfate Inhaler - [Ventolin Hfa Inhaler -] 2 inh PO Q4H PRN 05/16/17 - Diagnosis (1) Alcohol dependence with uncomplicated withdrawal Current Visit: Yes Status: Acute (2) Low body mass index (BMI) Current Visit: Yes Status: Acute (3) Nicotine dependence Current Visit: Yes Status: Acute Qualifiers: Nicotine product type: cigarettes Substance use status: in withdrawal Qualified Code(s): F17.213 - Nicotine dependence, cigarettes, with withdrawal (4) Opioid dependence with withdrawal Current Visit: Yes Status: Acute (5) Asthma Current Visit: Yes Status: Chronic Qualifiers: Asthma severity: mild Asthma persistence: intermittent Asthma complication type: uncomplicated Qualified Code(s): J45.20 - Mild intermittent asthma, uncomplicated (6) Cocaine dependence, uncomplicated Current Visit: Yes Status: Acute (7) GERD (gastroesophageal reflux disease) Current Visit: Yes Status: Chronic Qualifiers: Esophagitis presence: without esophagitis Qualified Code(s): K21.9 - Gastro -esophageal reflux disease without esophagitis (8) Weight loss Current Visit: Yes Status: Chronic - AMA Did Patient Leave Against Medical Advice: No
== END 2018-05-02 12:33 | disposition other institution (70) | DRG 773 ==
LOC: YASAS 09:36 → Y3N 12:11
PROVIDERS: ADMIT Surgery; ATTEND Surgery
PROC: HZ2ZZZZ Detoxification Services for Substance Abuse Treatment (ICD-10-PCS; principal; 2018-04-27)
DX: F11.23 Opioid dependence with withdrawal (principal); F10.230 Alcohol dependence with withdrawal, uncomplicated; F14.20 Cocaine dependence, uncomplicated; F17.213 Nicotine dependence, cigarettes, with withdrawal; F32.9 Major depressive disorder, single episode, unspecified; J45.20 Mild intermittent asthma, uncomplicated; K21.9 Gastro-esophageal reflux disease without esophagitis; R63.6 Underweight; R63.4 Abnormal weight loss; Z68.20 Body mass index [BMI] 20.0-20.9, adult
CPT/HCPCS: 36415; 80053; 81003; 85027; 86593; 93005; 93010

== ENCOUNTER 2018-05-02 12:32 | Inpatient (IN) | payer OTHER ==
[2018-05-02] MEDS ORDERED: MENTHOL/PHENOL 1 EACH UD MM PRN (13:31)
[2018-05-02] MEDS ORDERED: MAG HYDROX/AL HYDROX/SIMETH 30 ML UNIT-DOSE CUP PO PRN (13:31)
[2018-05-02] MEDS ORDERED: MAGNESIUM HYDROX 2400MG/30ML ORAL SUSPENSION 30 ML CUP PO PRN (13:31)
[2018-05-02] MEDS ORDERED: MAGNESIUM CITRATE 300 ML BOTTLE PO PRN (13:31)
[2018-05-02] MEDS ORDERED: NICOTINE POLACRILEX 2 MG GUM BUC PRN (13:31)
[2018-05-02] MEDS ORDERED: guaiFENesin/D-METHORPHAN HB 10 ML UNIT-DOSE CUPS PO PRN (13:31)
[2018-05-02] MEDS ORDERED: LOPERAMIDE HCL 2 MG CAPSULE PO PRN (13:31)
[2018-05-02] MEDS ORDERED: P-EPHED 60MG/TRIPROLIDI 2.5MG TABLET PO PRN (13:31)
--- NOTE | 2018-05-02 13:32 | HP ---
KATHARINE GARZA Rehab Assess/Revision - Admission History Admitted to Rehab from: [facility] Date of Admission to Rehab: 05/02/18 - Vital signs Vital Signs: Vital Signs Period Temp Pulse Resp BP Sys/Quijano Pulse Ox Last 24 Hr 98.1 F-98.1 F 77-77 18-18 123-123/70-70 - Findings Detox History & Physical reviewed: Yes Concur with findings: Yes Comments/Additional Findings: ADMITTED TO REHAB TODAY FOR AFTERCARE.
--- NOTE | 2018-05-02 13:39 | HP ---
KATHARINE GARZA Rehab Assess/Revision - Vital signs Vital Signs: Vital Signs Period Temp Pulse Resp BP Sys/Quijano Pulse Ox Last 24 Hr 98.1 F-98.1 F 77-77 18-18 123-123/70-70 Inpatient Rehab Admission - Initial Determination Are CD services needed?: Yes Free of communicable disease: Yes Not in need of hospitalization: Yes - Rehab Admission Criteria Patient is meeting Inpatient Rehab admission criteria:: Yes
[2018-05-02] MEDS: NICOTINE 14 MG/24 HOURS TOPICAL PATCH TD SCH (14:38)
--- NOTE | 2018-05-02 16:49 | HP ---
Psychiatrist Admission - Data Date of interview: 05/02/18 Admission source: Transferred from [address] [place] [address]. Identifying data: This is one of multiple admissions to [facility] for this 57 y/ o AA male who completed detox treatment on [address] [place] [address] and sought rehabilitation care at [address] to address heroin,cocaine and alcohol dependence.Patient is single,a father of two,homeless,unemployed and currently supported on Public Assistance. Medical History: GERD and bronchial asthma. Psychiatric History: Patient denies history of psychiatric hospitalizations.Mr Logan declares that he was treated with mirtazapine and an unnamed medication to address depression during his stay at [facility] (ejected from that program three months ago ; reasons not offered).Off psychotropic medications since his discharge from [facility].No contact with mental health care providers.Past history of methadone maintenance.Patient denies history of suicide attempts. Physical/Sexual Abuse/Trauma History: Patient denies. Additional Comment: Profile of substance abuse revisited in this interview.Mr Logan confirms long-standing use of heroin,crack and alcohol.Details in this imported section of current [facility] report as follows : Smoking history: Current every day smoker. Have you smoked in the past 12 months: Yes. Aproximately how many cigarettes per day: 10. Cigars Per Day: 0. Hx Chewing Tobacco Use: No. Initiated information on smoking cessation: Yes. 'Breaking Loose' booklet given: 04/27/18. - Substance & Tx. History. Hx Alcohol Use: Yes. Hx Substance Use: Yes. Substance Use Type: Alcohol, Cocaine, Heroin. Hx Substance Use Treatment: Yes (2017). - Substances Abused. Alcohol. Route: Oral. Frequency: Daily. Amount used: 4 (24oz) cans of beer; vodka -1/4pint. Age of first use: 13. Date of Last Use: 04/26/17. Crack. Route: Smoking. Frequency: Daily. Amount used: 7 wraps. Age of first use: 26. Date of Last Use: 04/26/18. Heroin. Route: Inhalation. Frequency: Daily. Amount used: 25bags. Age of first use: 19. Date of Last Use: 04/26/18. Urine Drug Screen Results: JESSE-Cocaine, OPI-Opiates, TCA-Tricyclic Antidepressant.Noted. Vital Signs: Vital Signs - 24 hr 05/02/18 05/02/18 12:39 13:06 Temperature 98.1 F 98.1 F Pulse Rate 77 77 Respiratory 18 18 Rate Blood Pressure 123/70 123/70 Allergies/Adverse Reactions: Allergies Allergy/AdvReac Type Severity Reaction Status Date / Time No Known Allergies Allergy Verified 05/02/18 12:39 - Substance Abuse/Tx History Hx Alcohol Use: Yes (consumes 1/4 pint of vodka daily since age 14) Hx Substance Use: Yes (smokes one pack of cigarettes daily) Substance Use Type: Alcohol, Cocaine, Heroin Hx Substance Use Treatment: Yes Mental Status Exam - Mental Status Exam Alert and Oriented to: Time, Place, Person Cognitive Function: Good Patient Appearance: Well Groomed Mood: Anxious (mildly anxious), Hopeful Affect: Appropriate, Normal Range Patient Behavior: Appropriate, Cooperative Speech Pattern: Clear, Appropriate Voice Loudness: Normal Thought Process: Intact, Goal Oriented Thought Disorder: Not Present Hallucinations: Denies Suicidal Ideation: Denies Homicidal Ideation: Denies Insight/Judgement: Fair Sleep: Poorly, Difficulty falling asleep (requests trazodone) Appetite: Good Muscle strength/Tone: Normal Gait/Station: Normal Psychiatric Findings - Problem List ([place] 1, 2,3) (1) Opioid dependence Current Visit: Yes Status: Acute (2) Alcohol dependence Current Visit: Yes Status: Acute (3) Cocaine dependence Current Visit: Yes Status: Acute (4) Nicotine dependence Current Visit: Yes Status: Acute Qualifiers: Nicotine product type: cigarettes Substance use status: in withdrawal Qualified Code(s): F17.213 - Nicotine dependence, cigarettes, with withdrawal (5) Insomnia Current Visit: Yes Status: Acute - Initial Treatment Plan Initial Treatment Plan: Psychoeducation.Sleep hygiene.Group/Supportive therapy.Insomnia, at the request of the patient, is addressed with trazodone 50 mg po hs.Mr Logan is made aware of the risk of priapism and he is instructed to alert MD/RN if occurrence of erectile abnormalities (prolonged/painful erection) .Patient consents (verbally) to this careplan.Observation.
[2018-05-02] MEDS: THIAMINE HCL 100 MG TABLET (FP) PO SCH (21:34)
[2018-05-02] MEDS: traZODone HCL 50 MG TABLET (FP) PO SCH (21:34)
[2018-05-02] MEDS: ALBUTEROL SO4 8 GM HFA INHALER IH PRN (21:57)
[2018-05-03] MEDS: PRENATAL VITAMINS W/ FOLIC ACID TABLET (FP) PO SCH (10:40)
[2018-05-03] MEDS: NICOTINE 14 MG/24 HOURS TOPICAL PATCH TD SCH (10:40)
[2018-05-03] MEDS: ALBUTEROL SO4 8 GM HFA INHALER IH PRN (17:55)
[2018-05-03] MEDS: traZODone HCL 50 MG TABLET (FP) PO SCH (21:25)
[2018-05-03] MEDS: THIAMINE HCL 100 MG TABLET (FP) PO SCH (21:25)
[2018-05-04] MEDS: hydrOXYzine PAMOATE 50 MG CAPSULE (FP) PO PRN (03:31)
[2018-05-04] MEDS: ALBUTEROL SO4 8 GM HFA INHALER IH PRN (03:35)
[2018-05-04] MEDS: PRENATAL VITAMINS W/ FOLIC ACID TABLET (FP) PO SCH (10:26)
[2018-05-04] MEDS: NICOTINE 14 MG/24 HOURS TOPICAL PATCH TD SCH (10:26)
[2018-05-04] MEDS: THIAMINE HCL 100 MG TABLET (FP) PO SCH (21:28)
[2018-05-04] MEDS: traZODone HCL 50 MG TABLET (FP) PO SCH (21:28)
[2018-05-05] MEDS: PRENATAL VITAMINS W/ FOLIC ACID TABLET (FP) PO SCH (10:53)
[2018-05-05] MEDS: NICOTINE 14 MG/24 HOURS TOPICAL PATCH TD SCH (10:53)
[2018-05-05] MEDS: traZODone HCL 50 MG TABLET (FP) PO SCH (21:37)
[2018-05-05] MEDS: THIAMINE HCL 100 MG TABLET (FP) PO SCH (21:37)
[2018-05-05] MEDS: hydrOXYzine PAMOATE 50 MG CAPSULE (FP) PO PRN (23:51)
[2018-05-06] MEDS: PRENATAL VITAMINS W/ FOLIC ACID TABLET (FP) PO SCH (10:29)
[2018-05-06] MEDS: NICOTINE 14 MG/24 HOURS TOPICAL PATCH TD SCH (10:29)
[2018-05-06] MEDS: traZODone HCL 50 MG TABLET (FP) PO SCH (21:24)
[2018-05-06] MEDS: THIAMINE HCL 100 MG TABLET (FP) PO SCH (21:24)
[2018-05-06] MEDS: MELATONIN 5 MG TABLETS PO PRN (21:24)
[2018-05-07] MEDS: PRENATAL VITAMINS W/ FOLIC ACID TABLET (FP) PO SCH (10:37)
[2018-05-07] MEDS: NICOTINE 14 MG/24 HOURS TOPICAL PATCH TD SCH (10:37)
[2018-05-07] MEDS: ALBUTEROL SO4 8 GM HFA INHALER IH PRN (16:15)
[2018-05-07] MEDS: traZODone HCL 50 MG TABLET (FP) PO SCH (21:35)
[2018-05-07] MEDS: THIAMINE HCL 100 MG TABLET (FP) PO SCH (21:35)
[2018-05-07] MEDS: MELATONIN 5 MG TABLETS PO PRN (21:36)
[2018-05-08] MEDS: hydrOXYzine PAMOATE 50 MG CAPSULE (FP) PO PRN (02:32)
[2018-05-08] MEDS: PRENATAL VITAMINS W/ FOLIC ACID TABLET (FP) PO SCH (10:14)
[2018-05-08] MEDS: NICOTINE 14 MG/24 HOURS TOPICAL PATCH TD SCH (10:15)
--- NOTE | 2018-05-08 12:04 | PN ---
Psychiatric Progress Note Vital Signs: Vital Signs Period Temp Pulse Resp BP Sys/Quijano Pulse Ox Last 24 Hr 98.1 F 72 16-20 119/70 Date of Session: 05/08/18 Chief Complaint:: Insomnia HPI: Patient addressing Alcohol, Opioid and Cocaine Dependence comorbid with Nicotine dependence ROS: Asthma, GERD Current Medications: Active Medications Generic Name Dose Route Start Last Admin Trade Name Freq PRN Reason Stop Dose Admin Acetaminophen 650 mg 05/02/18 13:31 Tylenol - PO Q4H PRN FEVER Al Hydroxide/Mg Hydroxide 30 ml 05/02/18 13:31 Mylanta Oral Suspension - PO Q6H PRN DYSPEPSIA Albuterol Sulfate 2 puff 05/02/18 21:41 05/07/18 16:15 Ventolin Hfa Inhaler - IH 2 puff Q4H PRN Administration SHORT OF BREATH/WHEEZING Eucalyptus/Menthol/Phenol/Sorbitol 1 each 05/02/18 13:31 Cepastat Lozenge - MM Q4H PRN SORE THROAT Guaifenesin 10 ml 05/02/18 13:31 Robitussin Dm - PO Q6H PRN COUGH Hydroxyzine Pamoate 50 mg 05/02/18 13:31 05/08/18 02:32 Vistaril - PO 50 mg Q4H PRN Administration AGITATION Ibuprofen 400 mg 05/02/18 13:31 Motrin - PO Q6H PRN Pain Level 4-6 Loperamide HCl 4 mg 05/02/18 13:31 Imodium - PO Q6H PRN DIARRHEA Magnesium Citrate 300 ml 05/02/18 13:31 Citroma - PO Q48H PRN CONSTIPATION Magnesium Hydroxide 30 ml 05/02/18 13:31 Milk Of Magnesia - PO DAILY PRN CONSTIPATION Melatonin 5 mg 05/02/18 22:00 05/07/18 21:36 Melatonin PO 5 mg HS PRN Administration INSOMNIA Nicotine 14 mg 05/02/18 14:05 05/08/18 10:15 Nicoderm Patch - TD Not Given DAILY KENNEDY Nicotine Polacrilex 2 mg 05/02/18 13:31 Nicorette Gum - BUC Q2H PRN NICOTINE REPLACEMENT RX Multivit/Folic Acid/Iron 1 tab 05/03/18 10:00 05/08/18 10:14 Vitamins (Sjr) - PO 1 tab DAILY KENNEDY Administration Pseudoephedrine/Triprolidine 1 combo 05/02/18 13:31 Actifed - PO TID PRN NASAL CONGESTION Thiamine HCl 100 mg 05/02/18 22:00 05/07/18 21:35 Vitamin B1 - PO 100 mg HS KENNEDY Administration Trazodone HCl 50 mg 05/02/18 22:00 05/07/18 21:35 Desyrel - PO 50 mg HS KENNEDY Administration Current Side Effect: No Lab tests ordered: Yes Lab tests reviewed: Yes Provider note:: Patient reports experiencing difficulty to sleep despite taking Trazadone 50 mg at bedtime. Requests that medication dosage be adjusted to provide restful sleep Total face to face time:: 15 Mental Status Exam - Mental Status Exam Alert and Oriented to: Time, Place, Person Cognitive Function: Fair Patient Appearance: Well Groomed Mood: Hopeful, Euthymic Affect: Appropriate Patient Behavior: Cooperative Speech Pattern: Clear Voice Loudness: Normal Thought Process: Intact Thought Disorder: Not Present Hallucinations: Denies Suicidal Ideation: Denies Homicidal Ideation: Denies Insight/Judgement: Fair Sleep: Poorly Appetite: Good Muscle strength/Tone: Normal Gait/Station: Normal Psychiatric Treatment Plan - Problem List (1) Alcohol dependence Current Visit: Yes (2) Opioid dependence Current Visit: Yes (3) Cocaine dependence Current Visit: Yes (4) Nicotine dependence Current Visit: Yes Qualifiers: Nicotine product type: cigarettes Substance use status: in withdrawal Qualified Code(s): F17.213 - Nicotine dependence, cigarettes, with withdrawal (5) Asthma Current Visit: Yes Qualifiers: Asthma severity: mild Asthma persistence: intermittent Asthma complication type: uncomplicated Qualified Code(s): J45.20 - Mild intermittent asthma, uncomplicated (6) GERD (gastroesophageal reflux disease) Current Visit: Yes Qualifiers: Esophagitis presence: esophagitis presence not specified Qualified Code(s) : K21.9 - Gastro-esophageal reflux disease without esophagitis Initial treatment plan: 1) Discontinue trazadone 50 mg po HS. 2) Start Trazadone 100 mg po HS. 3) Monitor progress
[2018-05-08] MEDS: THIAMINE HCL 100 MG TABLET (FP) PO SCH (21:25)
[2018-05-08] MEDS: traZODone HCL 100 MG TABLET (FP) PO SCH (21:25)
[2018-05-09] MEDS: PRENATAL VITAMINS W/ FOLIC ACID TABLET (FP) PO SCH (10:27)
[2018-05-09] MEDS: NICOTINE 14 MG/24 HOURS TOPICAL PATCH TD SCH (10:29)
[2018-05-09] MEDS: IBUPROFEN 400 MG TABLET (FP) PO PRN ×2 (11:22→18:42)
[2018-05-09] MEDS ORDERED: METHYL SALICYLATE/MENTHOL OINT 30 GM TUBE TP PRN (21:23)
[2018-05-09] MEDS: traZODone HCL 100 MG TABLET (FP) PO SCH (21:45)
[2018-05-09] MEDS: THIAMINE HCL 100 MG TABLET (FP) PO SCH (21:45)
[2018-05-09] MEDS: ALBUTEROL SO4 8 GM HFA INHALER IH PRN (21:45)
[2018-05-10] MEDS: MELATONIN 5 MG TABLETS PO PRN (00:32)
[2018-05-10] MEDS: IBUPROFEN 400 MG TABLET (FP) PO PRN ×2 (06:23→12:15)
[2018-05-10] MEDS: ACETAMINOPHEN 325 MG TABLET (FP) PO PRN (07:53)
[2018-05-10] MEDS: P-EPHED 60MG/TRIPROLIDI 2.5MG TABLET PO PRN (07:54)
[2018-05-10] MEDS: NICOTINE 14 MG/24 HOURS TOPICAL PATCH TD SCH (10:26)
[2018-05-10] MEDS: PRENATAL VITAMINS W/ FOLIC ACID TABLET (FP) PO SCH (10:26)
[2018-05-10] MEDS: OXYMETAZOLINE 0.05% NASAL SOLUTION 15 ML BOTTLE NS PRN (12:14)
[2018-05-10] MEDS: THIAMINE HCL 100 MG TABLET (FP) PO SCH (21:43)
[2018-05-10] MEDS: traZODone HCL 100 MG TABLET (FP) PO SCH (21:44)
[2018-05-10] MEDS: ALBUTEROL SO4 8 GM HFA INHALER IH PRN (22:55)
[2018-05-11] MEDS: MELATONIN 5 MG TABLETS PO PRN (01:00)
[2018-05-11] MEDS ORDERED: PT OWN MED DRAWER 7, Y5N ONE (03:03)
[2018-05-11] MEDS: PRENATAL VITAMINS W/ FOLIC ACID TABLET (FP) PO SCH (10:08)
[2018-05-11] MEDS: OXYMETAZOLINE 0.05% NASAL SOLUTION 15 ML BOTTLE NS PRN (10:09)
[2018-05-11] MEDS: NICOTINE 14 MG/24 HOURS TOPICAL PATCH TD SCH (10:09)
[2018-05-11] MEDS: P-EPHED 60MG/TRIPROLIDI 2.5MG TABLET PO PRN ×2 (11:57→21:40)
[2018-05-11] MEDS: traZODone HCL 100 MG TABLET (FP) PO SCH (21:39)
[2018-05-11] MEDS: THIAMINE HCL 100 MG TABLET (FP) PO SCH (21:39)
[2018-05-12] MEDS: hydrOXYzine PAMOATE 50 MG CAPSULE (FP) PO PRN ×2 (01:31→21:24)
[2018-05-12] MEDS: OXYMETAZOLINE 0.05% NASAL SOLUTION 15 ML BOTTLE NS PRN ×3 (01:31→22:48)
[2018-05-12] MEDS: PRENATAL VITAMINS W/ FOLIC ACID TABLET (FP) PO SCH (10:45)
[2018-05-12] MEDS: ACETAMINOPHEN 325 MG TABLET (FP) PO PRN (10:45)
[2018-05-12] MEDS: P-EPHED 60MG/TRIPROLIDI 2.5MG TABLET PO PRN (10:46)
[2018-05-12] MEDS: NICOTINE 14 MG/24 HOURS TOPICAL PATCH TD SCH (10:46)
--- NOTE | 2018-05-12 12:33 | PN ---
[facility] Progress Note Note: PATIENT PRESENTS WITH NASAL CONGESTION, SORE THROAT AND WATERY EYES. STATES FLONASE AND ACTIFED HELPS A LITTLE. DENIES COUGH, EARACHE AND PHLEGM. Vital Signs Temperature 97.8 F 05/12/18 06:31 Pulse Rate 89 05/12/18 06:31 Respiratory Rate 18 05/12/18 06:31 Blood Pressure 122/74 05/12/18 06:31 O2 Sat by Pulse Oximetry (%) OBJ: SKIN: WARM AND DRY CAR: S1S2 RESP: CTA BL ENT: + PERRLA, +NASAL CONGESTION, PHARYNX PINK AND MOIST. NO EXUDATE A/P; ALLERGIC RHINITIS WILL CONTINUE ACTIFED AND FLONASE ORDERED CONTINUE TO MONITOR CLINCALLY
[2018-05-12] MEDS: traZODone HCL 100 MG TABLET (FP) PO SCH (21:23)
[2018-05-12] MEDS: THIAMINE HCL 100 MG TABLET (FP) PO SCH (21:23)
[2018-05-12] MEDS: ALBUTEROL SO4 8 GM HFA INHALER IH PRN (22:52)
[2018-05-13] MEDS: OXYMETAZOLINE 0.05% NASAL SOLUTION 15 ML BOTTLE NS PRN ×2 (06:50→17:59)
[2018-05-13] MEDS: NICOTINE 14 MG/24 HOURS TOPICAL PATCH TD SCH (10:23)
[2018-05-13] MEDS: PRENATAL VITAMINS W/ FOLIC ACID TABLET (FP) PO SCH (10:23)
[2018-05-13] MEDS: IBUPROFEN 400 MG TABLET (FP) PO PRN (14:09)
[2018-05-13] MEDS: traZODone HCL 100 MG TABLET (FP) PO SCH (21:26)
[2018-05-13] MEDS: THIAMINE HCL 100 MG TABLET (FP) PO SCH (21:26)
[2018-05-13] MEDS: hydrOXYzine PAMOATE 50 MG CAPSULE (FP) PO PRN (21:28)
[2018-05-13] MEDS: P-EPHED 60MG/TRIPROLIDI 2.5MG TABLET PO PRN (21:28)
[2018-05-14] MEDS: IBUPROFEN 400 MG TABLET (FP) PO PRN (01:32)
[2018-05-14] MEDS: OXYMETAZOLINE 0.05% NASAL SOLUTION 15 ML BOTTLE NS PRN (08:48)
[2018-05-14] MEDS: ACETAMINOPHEN 325 MG TABLET (FP) PO PRN (09:09)
[2018-05-14] MEDS: P-EPHED 60MG/TRIPROLIDI 2.5MG TABLET PO PRN ×2 (09:28→21:40)
[2018-05-14] MEDS: NICOTINE 14 MG/24 HOURS TOPICAL PATCH TD SCH (09:29)
[2018-05-14] MEDS: PRENATAL VITAMINS W/ FOLIC ACID TABLET (FP) PO SCH (09:29)
[2018-05-14] MEDS ORDERED: IBUPROFEN 600 MG TABLET (FP) PO PRN (10:51)
--- NOTE | 2018-05-14 11:09 | PN ---
[facility] Progress Note Note: complained of nasal congestion,history of sinus problem,pain in the tooth, nasal congestion rhinitis treatment flonase nasal spray motrin 600 mgs po q 6 hrs prn for pain close monitoring
[2018-05-14] MEDS: FLUTICASONE PROP 0.05% 16 GM NASAL SPRAY NS SCH (13:17)
[2018-05-14] MEDS: traZODone HCL 100 MG TABLET (FP) PO SCH (21:37)
[2018-05-14] MEDS: THIAMINE HCL 100 MG TABLET (FP) PO SCH (21:37)
[2018-05-14] MEDS: MELATONIN 5 MG TABLETS PO PRN (21:41)
[2018-05-15] MEDS: OXYMETAZOLINE 0.05% NASAL SOLUTION 15 ML BOTTLE NS PRN ×2 (03:26→10:26)
[2018-05-15 07:15] VITALS: BP 128/85; PULSE 79; TEMP 98.4
[2018-05-15] MEDS: NICOTINE 14 MG/24 HOURS TOPICAL PATCH TD SCH (10:24)
[2018-05-15] MEDS: PRENATAL VITAMINS W/ FOLIC ACID TABLET (FP) PO SCH (10:24)
[2018-05-15] MEDS: FLUTICASONE PROP 0.05% 16 GM NASAL SPRAY NS SCH (10:26)
--- NOTE | 2018-05-15 10:36 | PN ---
Psychiatric Progress Note Vital Signs: Vital Signs Period Temp Pulse Resp BP Sys/Quijano Pulse Ox Last 24 Hr 98.4 F 79 18-18 128/85 Date of Session: 05/15/18 Chief Complaint:: "Discharge" HPI: Patient admitted to for alcohol, heroin and crack/cocaine dependence. ROS: GERD and bronchial asthma. Current Medications: Active Medications Generic Name Dose Route Start Last Admin Trade Name Freq PRN Reason Stop Dose Admin Acetaminophen 650 mg 05/02/18 13:31 05/14/18 09:09 Tylenol - PO 650 mg Q4H PRN Administration FEVER Al Hydroxide/Mg Hydroxide 30 ml 05/02/18 13:31 Mylanta Oral Suspension - PO Q6H PRN DYSPEPSIA Albuterol Sulfate 2 puff 05/02/18 21:41 05/12/18 22:52 Ventolin Hfa Inhaler - IH 2 puff Q4H PRN Administration SHORT OF BREATH/WHEEZING Eucalyptus/Menthol/Phenol/Sorbitol 1 each 05/02/18 13:31 05/14/18 21:40 Cepastat Lozenge - MM 1 each Q4H PRN Administration SORE THROAT Fluticasone Propionate 2 spray 05/14/18 11:15 05/15/18 10:26 Flonase - NS 2 spray DAILY KENNEDY Administration Guaifenesin 10 ml 05/02/18 13:31 05/14/18 21:40 Robitussin Dm - PO 10 ml Q6H PRN Administration COUGH Hydroxyzine Pamoate 50 mg 05/02/18 13:31 05/13/18 21:28 Vistaril - PO 50 mg Q4H PRN Administration AGITATION Ibuprofen 600 mg 05/14/18 10:51 05/14/18 11:03 Motrin - PO 600 mg Q6H PRN Administration PAIN LEVEL 4 - 6 Loperamide HCl 4 mg 05/02/18 13:31 Imodium - PO Q6H PRN DIARRHEA Magnesium Citrate 300 ml 05/02/18 13:31 Citroma - PO Q48H PRN CONSTIPATION Magnesium Hydroxide 30 ml 05/02/18 13:31 Milk Of Magnesia - PO DAILY PRN CONSTIPATION Melatonin 5 mg 05/02/18 22:00 05/14/18 21:41 Melatonin PO 5 mg HS PRN Administration INSOMNIA Methyl Salicylate 1 applic 05/09/18 21:23 05/10/18 00:32 Julio C-Zamarripa - TP 1 applic Q12H PRN Administration PAIN Nicotine 14 mg 05/02/18 14:05 05/15/18 10:24 Nicoderm Patch - TD Not Given DAILY KENNEDY Nicotine Polacrilex 2 mg 05/02/18 13:31 Nicorette Gum - BUC Q2H PRN NICOTINE REPLACEMENT RX Oxymetazoline HCl 2 spray 05/10/18 07:46 05/15/18 10:26 Afrin - NS 2 spray BID PRN Administration NASAL CONGESTION Multivit/Folic Acid/Iron 1 tab 05/03/18 10:00 05/15/18 10:24 Vitamins (Sjr) - PO 1 tab DAILY KENNEDY Administration Pseudoephedrine/Triprolidine 1 combo 05/10/18 07:37 05/14/18 21:40 Actifed - PO 1 combo Q6H PRN Administration NASAL CONGESTION Thiamine HCl 100 mg 05/02/18 22:00 05/14/18 21:37 Vitamin B1 - PO 100 mg HS KENNEDY Administration Trazodone HCl 100 mg 05/08/18 22:00 05/14/18 21:37 Desyrel - PO 100 mg HS KENNEDY Administration Medication(s) Change(s): No. Current Side Effect: No Lab tests ordered: No Lab tests reviewed: Yes Provider note:: Patient completed the [facility] rehabilitation program on 05/15/18. He has met his treatment goals and is able to identify behaviors that contribute to relapsing. Through participation of this program patient has learned the importance of changing his behavior and the need for more structure in his life. Patient will continue to address his issues at the [facility] program in the [place], [facility]. A prescription of Trazodone 100mg for 30 days was electronically sent [facility] at [address] [place] [address]. Patient is stable for discharge on 05/15/18. Total face to face time:: 35 Mental Status Exam - Mental Status Exam Alert and Oriented to: Time, Place, Person Cognitive Function: Good Patient Appearance: Well Groomed Mood: Hopeful, Happy Affect: Appropriate Patient Behavior: Appropriate, Cooperative Speech Pattern: Clear, Appropriate Voice Loudness: Normal Thought Process: Intact, Goal Oriented Thought Disorder: Not Present Hallucinations: Denies Suicidal Ideation: Denies Homicidal Ideation: Denies Insight/Judgement: Good Sleep: Well Appetite: Good Muscle strength/Tone: Normal Gait/Station: Normal Psychiatric Treatment Plan - Problem List (1) Alcohol dependence Current Visit: Yes (2) Cocaine dependence Current Visit: Yes (3) Insomnia Current Visit: Yes (4) Nicotine dependence Current Visit: Yes Qualifiers: Nicotine product type: cigarettes Substance use status: in withdrawal Qualified Code(s): F17.213 - Nicotine dependence, cigarettes, with withdrawal (5) Opioid dependence Current Visit: Yes
== END 2018-05-15 10:45 | disposition home or self-care (01) | DRG 772 ==
LOC: YASAS 12:32 → Y5N 12:33
PROVIDERS: ADMIT Psychiatry & Neurology Psychiatry; ATTEND Psychiatry & Neurology Psychiatry
PROC: HZ42ZZZ Group Counseling for Substance Abuse Treatment, Cognitive-Behavioral (ICD-10-PCS; principal; 2018-05-02)
DX: F11.20 Opioid dependence, uncomplicated (principal); F10.20 Alcohol dependence, uncomplicated; F14.20 Cocaine dependence, uncomplicated; G47.00 Insomnia, unspecified; J45.20 Mild intermittent asthma, uncomplicated; J30.89 Other allergic rhinitis; K21.9 Gastro-esophageal reflux disease without esophagitis; R63.4 Abnormal weight loss; Z68.21 Body mass index [BMI] 21.0-21.9, adult

== ENCOUNTER 2020-09-15 08:06 | Inpatient (IN) | payer OTHER ==
[2020-09-15 08:43] VITALS: BMI 20.9
[2020-09-15] MEDS ORDERED: ALBUTEROL SO4 HFA INHALER IH ONE ×2 (09:27→10:26)
[2020-09-15] MEDS ORDERED: ALBUTEROL SO4 HFA INHALER IH PRN (09:34)
[2020-09-15] MEDS ORDERED: ACETAMINOPHEN 325 MG TABLET (FP) PO PRN ×2 (09:35)
[2020-09-15] MEDS ORDERED: cloNIDine HCL 0.1 MG TABLET PO PRN (09:35)
[2020-09-15] MEDS ORDERED: METHOCARBAMOL 500 MG TABLET PO PRN (09:35)
[2020-09-15] MEDS ORDERED: IBUPROFEN 400 MG TABLET (FP) PO PRN (09:35)
[2020-09-15] MEDS ORDERED: MENTHOL/PHENOL 1 EACH UD MM PRN (09:35)
[2020-09-15] MEDS ORDERED: chlordiazePOXIDE HCL 25 MG CAPSULE PO PRN (09:35)
[2020-09-15] MEDS ORDERED: MAGNESIUM CITRATE 300 ML BOTTLE PO PRN (09:35)
[2020-09-15] MEDS ORDERED: MAG HYDROX/AL HYDROX/SIMETH 30 ML UNIT-DOSE CUP PO PRN (09:35)
[2020-09-15] MEDS ORDERED: MAGNESIUM HYDROX 2400MG/30ML ORAL SUSPENSION 30 ML CUP PO PRN (09:35)
[2020-09-15] MEDS ORDERED: ONDANSETRON *ODT* 4 MG TABLET SL PRN (09:35)
[2020-09-15] MEDS ORDERED: BISMUTH SUBSALICYLATE 524 MG/30 ML UD PO PRN (09:35)
[2020-09-15] MEDS ORDERED: NICOTINE POLACRILEX 2 MG GUM BUC PRN (09:35)
[2020-09-15] MEDS ORDERED: METHADONE HCL 10 MG TABLET (FOR DETOX USE ONLY) PO ONE (10:00)
[2020-09-15] MEDS: chlordiazePOXIDE HCL 25 MG CAPSULE PO SCH ×3 (11:38→22:28)
[2020-09-15] MEDS: PANTOPRAZOLE 40 MG TABLET PO SCH (11:38)
[2020-09-15] MEDS: PRENATAL VITAMINS W/ FOLIC ACID TABLET (FP) PO SCH (11:39)
[2020-09-15] MEDS: predniSONE 20 MG TABLET (UD) PO SCH (11:39)
[2020-09-15] MEDS: hydrOXYzine PAMOATE 25 MG CAPSULE (FP) PO SCH ×4 (11:39→22:29)
[2020-09-15] MEDS: NICOTINE 14 MG/24 HOURS TOPICAL PATCH TD SCH (11:43)
[2020-09-15 14:57] LABS: HEMATOCRIT 39.8 % (35.4-49); HEMOGLOBIN 13.1 GM/dL (11.7-16.9); MCH 30.2 pg (25.7-33.7); MEAN CELL VOLUME 91.7 fl (80-96); MEAN PLT VOLUME 9.8 fl (7.5-11.1); PLATELET COUNT 185 K/MM3 (134-434); RBC 4.34 M/mm3 (4.00-5.60); RDW 13.1 % (11.9-15.9); WHITE BLOOD COUNT 9.1 K/mm3 (4.0-10.0)
[2020-09-15 15:21] LABS: POTASSIUM 3.9 mmol/L (3.5-5.1)
[2020-09-15 15:25] LABS: CALCIUM 9.1 mg/dL (8.5-10.1)
[2020-09-15 15:26] LABS: ALBUMIN 3.7 g/dl (3.4-5.0); BLOOD UREA NITROGEN 10.8 mg/dL (7-18)
[2020-09-15 15:31] LABS: BILIRUBIN,TOTAL 0.6 mg/dL (0.2-1); TOT PROT 6.6 g/dl (6.4-8.2)
[2020-09-15] MEDS: ALBUTEROL SO4 HFA INHALER IH SCH (20:26)
[2020-09-15] MEDS: THIAMINE HCL 100 MG TABLET (FP) PO SCH (22:29)
[2020-09-15] MEDS: MELATONIN 5 MG TABLETS PO SCH (22:29)
[2020-09-15] MEDS ORDERED: traZODone HCL 50 MG TABLET (FP) PO ONE (23:00)
[2020-09-16] MEDS: ALBUTEROL SO4 HFA INHALER IH SCH ×7 (00:01→23:59)
[2020-09-16] MEDS ORDERED: MASKS NR ONE (06:11)
[2020-09-16] MEDS: hydrOXYzine PAMOATE 25 MG CAPSULE (FP) PO SCH ×5 (06:14→22:34)
[2020-09-16] MEDS: chlordiazePOXIDE HCL 25 MG CAPSULE PO SCH ×4 (06:14→22:34)
[2020-09-16] MEDS ORDERED: METHADONE HCL 10 MG TABLET (FOR DETOX USE ONLY) ONE (08:28)
[2020-09-16] MEDS ORDERED: METHADONE HCL 5 MG TABLET (FOR DETOX USE ONLY) ONE (08:28)
[2020-09-16] MEDS: predniSONE 20 MG TABLET (UD) PO SCH (09:57)
[2020-09-16] MEDS: PRENATAL VITAMINS W/ FOLIC ACID TABLET (FP) PO SCH (09:57)
[2020-09-16] MEDS: PANTOPRAZOLE 40 MG TABLET PO SCH (09:58)
[2020-09-16] MEDS ORDERED: METHADONE (DETOX) 20 MG, METHADONE (DETOX) 5 MG PO ONE (10:00)
[2020-09-16] MEDS: NICOTINE 14 MG/24 HOURS TOPICAL PATCH TD SCH (10:02)
[2020-09-16] MEDS ORDERED: ALBUTEROL SO4 2.5/IPRATROPIUM 0.5 INH SOL 3 ML VIAL.NEB. NEB PRN (16:46)
[2020-09-16] MEDS: MELATONIN 5 MG TABLETS PO SCH (22:34)
[2020-09-16] MEDS: THIAMINE HCL 100 MG TABLET (FP) PO SCH (22:34)
[2020-09-17] MEDS: hydrOXYzine PAMOATE 25 MG CAPSULE (FP) PO SCH ×5 (06:49→23:03)
[2020-09-17] MEDS: chlordiazePOXIDE HCL 25 MG CAPSULE PO SCH ×4 (06:50→23:04)
[2020-09-17] MEDS: ALBUTEROL SO4 HFA INHALER IH SCH ×4 (07:21→15:16)
[2020-09-17] MEDS ORDERED: METHADONE HCL 10 MG TABLET (FOR DETOX USE ONLY) PO ONE (10:00)
[2020-09-17] MEDS: NICOTINE 14 MG/24 HOURS TOPICAL PATCH TD SCH ×2 (10:30→10:44)
[2020-09-17] MEDS: PANTOPRAZOLE 40 MG TABLET PO SCH (10:30)
[2020-09-17] MEDS: predniSONE 20 MG TABLET (UD) PO SCH (10:30)
[2020-09-17] MEDS: PRENATAL VITAMINS W/ FOLIC ACID TABLET (FP) PO SCH (10:30)
[2020-09-17] MEDS: MELATONIN 5 MG TABLETS PO SCH (23:03)
[2020-09-17] MEDS: THIAMINE HCL 100 MG TABLET (FP) PO SCH (23:03)
[2020-09-18] MEDS ORDERED: chlordiazePOXIDE HCL 10 MG CAPSULE PO PRN
[2020-09-18] MEDS: chlordiazePOXIDE HCL 10 MG CAPSULE PO SCH ×4 (05:47→22:21)
[2020-09-18] MEDS: hydrOXYzine PAMOATE 25 MG CAPSULE (FP) PO SCH ×5 (05:47→22:21)
[2020-09-18] MEDS ORDERED: METHADONE HCL 10 MG TABLET (FOR DETOX USE ONLY) ONE (09:30)
[2020-09-18] MEDS ORDERED: METHADONE HCL 5 MG TABLET (FOR DETOX USE ONLY) ONE (09:30)
[2020-09-18] MEDS ORDERED: METHADONE (DETOX) 10 MG, METHADONE (DETOX) 5 MG PO ONE (10:00)
[2020-09-18] MEDS: PANTOPRAZOLE 40 MG TABLET PO SCH (10:20)
[2020-09-18] MEDS: predniSONE 20 MG TABLET (UD) PO SCH (10:20)
[2020-09-18] MEDS: NICOTINE 14 MG/24 HOURS TOPICAL PATCH TD SCH (10:21)
[2020-09-18] MEDS: PRENATAL VITAMINS W/ FOLIC ACID TABLET (FP) PO SCH (10:21)
[2020-09-18] MEDS: MELATONIN 5 MG TABLETS PO SCH (22:21)
[2020-09-18] MEDS: THIAMINE HCL 100 MG TABLET (FP) PO SCH (22:21)
[2020-09-19] MEDS: chlordiazePOXIDE HCL 10 MG CAPSULE PO SCH ×2 (06:10→17:08)
[2020-09-19] MEDS: hydrOXYzine PAMOATE 25 MG CAPSULE (FP) PO SCH ×5 (06:10→21:13)
[2020-09-19] MEDS ORDERED: METHADONE HCL 10 MG TABLET (FOR DETOX USE ONLY) PO ONE (10:00)
[2020-09-19] MEDS: PANTOPRAZOLE 40 MG TABLET PO SCH (10:28)
[2020-09-19] MEDS: PRENATAL VITAMINS W/ FOLIC ACID TABLET (FP) PO SCH (10:28)
[2020-09-19] MEDS: NICOTINE 14 MG/24 HOURS TOPICAL PATCH TD SCH (10:30)
[2020-09-19] MEDS ORDERED: predniSONE 10 MG TABLET (UD) PO ONE (10:45)
[2020-09-19] MEDS: BUDESONIDE/FORMETEROL FUMARATE 80/4.5 mcg INHALER IH SCH ×2 (13:15→21:14)
[2020-09-19] MEDS: THIAMINE HCL 100 MG TABLET (FP) PO SCH (21:13)
[2020-09-19] MEDS: MELATONIN 5 MG TABLETS PO SCH (21:14)
[2020-09-20] MEDS ORDERED: chlordiazePOXIDE HCL 10 MG CAPSULE PO ONE (05:00)
[2020-09-20] MEDS: hydrOXYzine PAMOATE 25 MG CAPSULE (FP) PO SCH (05:31)
[2020-09-20] MEDS ORDERED: METHADONE HCL 5 MG TABLET (FOR DETOX USE ONLY) PO ONE (06:00)
[2020-09-20 09:21] VITALS: BP 107/55; PULSE 88; TEMP 97.7
[2020-09-20] MEDS ORDERED: predniSONE 20 MG TABLET (UD) PO ONE (10:00)
[2020-09-21] MEDS ORDERED: predniSONE 10 MG TABLET (UD) PO ONE (10:00)
[2020-09-22] MEDS ORDERED: predniSONE 5 MG TABLET (UD) PO ONE (10:00)
== END 2020-09-20 09:28 | disposition home or self-care (01) | DRG 773 ==
LOC: YASAS 08:06 → Y3N 10:56
PROVIDERS: ADMIT Allergy & Immunology; ATTEND Allergy & Immunology
PROC: HZ2ZZZZ Detoxification Services for Substance Abuse Treatment (ICD-10-PCS; principal; 2020-09-15)
DX: F10.230 Alcohol dependence with withdrawal, uncomplicated (principal); F11.23 Opioid dependence with withdrawal; F14.20 Cocaine dependence, uncomplicated; F17.210 Nicotine dependence, cigarettes, uncomplicated; F19.24 Other psychoactive substance dependence with psychoactive substance-induced mood disorder; F32.9 Major depressive disorder, single episode, unspecified; G47.00 Insomnia, unspecified; J45.20 Mild intermittent asthma, uncomplicated; K21.9 Gastro-esophageal reflux disease without esophagitis; R06.02 Shortness of breath; Z59.0 Homelessness
CPT/HCPCS: 36415; 80053; 85027; 86780; 93005; 93010; C9803; U0003

== ENCOUNTER 2020-09-15 14:23 | Emergency (ER) | payer OTHER ==
[2020-09-15] MEDS ORDERED: ALBUTEROL SO4 HFA INHALER IH ONE (14:42)
[2020-09-15] MEDS ORDERED: ALBUTEROL SO4 2.5/IPRATROPIUM 0.5 INH SOL 3 ML VIAL.NEB. NEB ONE (14:51)
[2020-09-15] MEDS: ALBUTEROL SO4 2.5/IPRATROPIUM 0.5 INH SOL 3 ML VIAL.NEB. NEB SCH ×2 (14:54→14:55)
[2020-09-15 15:36] VITALS: BMI 21.3
[2020-09-15 19:11] VITALS: BP 137/90; PULSE 72; TEMP 98.1
== END 2020-09-15 19:24 | disposition short-term general hospital (02) ==
LOC: JER 14:23
PROC: 3E0F7GC Introduction of Other Therapeutic Substance into Respiratory Tract, Via Natural or Artificial Opening (ICD-10-PCS; principal; 2020-09-15)
DX: J45.901 Unspecified asthma with (acute) exacerbation (principal)
CPT/HCPCS: 99285-25

== ENCOUNTER 2022-09-14 13:20 | Inpatient (IN) | payer OTHER ==
[2022-09-14 14:36] VITALS: BMI 18.7
[2022-09-14] MEDS ORDERED: methaDONE HCL 10 MG TABLET (FOR DETOX USE ONLY) PO ONE (15:29)
[2022-09-14] MEDS ORDERED: IBUPROFEN 600 MG TABLET (FP) PO PRN (15:29)
[2022-09-14] MEDS ORDERED: MAG HYDROX/AL HYDROX/SIMETH 30 ML UNIT-DOSE CUP PO PRN (15:29)
[2022-09-14] MEDS ORDERED: BENZOCAINE/MENTHOL (CHLORASEPTIC ) LOZENGE MM PRN (15:29)
[2022-09-14] MEDS ORDERED: DICYCLOMINE HCL 10 MG CAPSULE PO PRN (15:29)
[2022-09-14] MEDS ORDERED: POLYETHYLENE GLYCOL (HEALTHYLAX) 3350 17 GM PACKET PO PRN (15:29)
[2022-09-14] MEDS ORDERED: cloNIDine HCL 0.1 MG TABLET PO PRN (15:29)
[2022-09-14] MEDS ORDERED: IBUPROFEN 400 MG TABLET (FP) PO PRN (15:29)
[2022-09-14] MEDS ORDERED: BISMUTH SUBSALICYLATE 262 MG/15 ML BTL PO PRN (15:29)
[2022-09-14] MEDS ORDERED: ACETAMINOPHEN 325 MG TABLET (FP) PO PRN ×2 (15:29)
[2022-09-14] MEDS ORDERED: LOPERAMIDE HCL 2 MG CAPSULE PO PRN (15:29)
[2022-09-14] MEDS ORDERED: MAGNESIUM HYDROX 2400MG/30ML ORAL SUSPENSION 30 ML CUP PO PRN (15:29)
[2022-09-14] MEDS ORDERED: NALOXONE HCL (KLOXXADO) 8 MG SPRAY NS PRN (15:29)
[2022-09-14] MEDS ORDERED: methaDONE HCL 10 MG TABLET (FOR DETOX USE ONLY) ONE (16:25)
[2022-09-14] MEDS ORDERED: chlordiazePOXIDE HCL 25 MG CAPSULE ONE (16:31)
[2022-09-14] MEDS: chlordiazePOXIDE HCL 25 MG CAPSULE PO PRN (16:32)
[2022-09-14] MEDS: chlordiazePOXIDE HCL 25 MG CAPSULE PO SCH ×2 (17:44→22:47)
[2022-09-14] MEDS: THIAMINE HCL 100 MG TABLET (FP) PO SCH (22:47)
[2022-09-14] MEDS: MELATONIN 5 MG TABLETS PO SCH (22:47)
[2022-09-14] MEDS: BUDESONIDE/FORMETEROL FUMARATE 80/4.5 mcg INHALER IH SCH (22:47)
[2022-09-15] MEDS: chlordiazePOXIDE HCL 25 MG CAPSULE PO SCH ×4 (06:06→22:39)
[2022-09-15 09:58] LABS: ALBUMIN 2.8 g/dl (3.4-5.0); BLOOD UREA NITROGEN 20.9 mg/dL (7-18); CALCIUM 8.7 mg/dL (8.5-10.1)
[2022-09-15 10:01] LABS: CREATININE 0.7 mg/dL (0.55-1.3)
[2022-09-15 10:03] LABS: BILIRUBIN,TOTAL 0.7 mg/dL (0.2-1); TOT PROT 6.6 g/dl (6.4-8.2)
[2022-09-15 10:23] LABS: HEMATOCRIT 41.3 % (35.4-49); HEMOGLOBIN 13.7 GM/dL (11.7-16.9); MCH 30.3 pg (25.7-33.7); MCHC 33.2 g/dl (32.0-35.9); MEAN CELL VOLUME 91.4 fl (80-96); MEAN PLT VOLUME 9.3 fl (7.5-11.1); PLATELET COUNT 200 10^3/uL (134-434); RBC 4.53 M/mm3 (4.00-5.60); RDW 13.5 % (11.9-15.9); WHITE BLOOD COUNT 9.8 K/mm3 (4.0-10.0)
[2022-09-15] MEDS: PRENATAL VITAMINS W/ FOLIC ACID TABLET (FP) PO SCH (10:44)
[2022-09-15] MEDS: BUDESONIDE/FORMETEROL FUMARATE 80/4.5 mcg INHALER IH SCH ×2 (10:44→22:38)
[2022-09-15] MEDS ORDERED: FLU VACC QS2022-23(6MOS UP)/PF 60 MCG/0.5 ML SYRINGE IM ONE (12:00)
[2022-09-15] MEDS ORDERED: ALBUTEROL SO4 0.083% IH SOL 2.5 MG/3 ML VIAL.NEB. NEB PRN (13:01)
[2022-09-15] MEDS: MELATONIN 5 MG TABLETS PO SCH (22:38)
[2022-09-15] MEDS: THIAMINE HCL 100 MG TABLET (FP) PO SCH (22:38)
[2022-09-16] MEDS: ONDANSETRON *ODT* 4 MG TABLET SL PRN ×2 (01:22→14:31)
[2022-09-16] MEDS: METHOCARBAMOL 500 MG TABLET PO PRN ×2 (01:23→10:00)
[2022-09-16] MEDS: chlordiazePOXIDE HCL 25 MG CAPSULE PO SCH ×4 (05:33→22:02)
[2022-09-16] MEDS: BUDESONIDE/FORMETEROL FUMARATE 80/4.5 mcg INHALER IH SCH ×2 (10:00→22:02)
[2022-09-16] MEDS ORDERED: methaDONE HCL 10 MG TABLET (FOR DETOX USE ONLY) PO ONE (10:00)
[2022-09-16] MEDS: FLUoxetine HCL 10 MG CAPSULE PO SCH (10:00)
[2022-09-16] MEDS: PRENATAL VITAMINS W/ FOLIC ACID TABLET (FP) PO SCH (10:00)
[2022-09-16] MEDS: chlordiazePOXIDE HCL 25 MG CAPSULE PO PRN (13:58)
[2022-09-16] MEDS: hydrOXYzine PAMOATE 25 MG CAPSULE (FP) PO PRN (14:31)
[2022-09-16] MEDS: MELATONIN 5 MG TABLETS PO SCH (22:02)
[2022-09-16] MEDS: THIAMINE HCL 100 MG TABLET (FP) PO SCH (22:02)
[2022-09-17] MEDS ORDERED: TRIMETHOBENZAMIDE HCL 200MG/2ML INJ IM ONE
[2022-09-17] MEDS ORDERED: chlordiazePOXIDE HCL 10 MG CAPSULE PO PRN
[2022-09-17] MEDS: chlordiazePOXIDE HCL 10 MG CAPSULE PO SCH ×4 (05:58→21:59)
[2022-09-17] MEDS: FLUoxetine HCL 10 MG CAPSULE PO SCH (10:08)
[2022-09-17] MEDS: PRENATAL VITAMINS W/ FOLIC ACID TABLET (FP) PO SCH (10:11)
[2022-09-17] MEDS: BUDESONIDE/FORMETEROL FUMARATE 80/4.5 mcg INHALER IH SCH ×2 (10:13→21:56)
[2022-09-17] MEDS: METHOCARBAMOL 500 MG TABLET PO PRN (10:14)
[2022-09-17] MEDS: MONTELUKAST NA 10 MG TABLET PO SCH (21:56)
[2022-09-17] MEDS: MELATONIN 5 MG TABLETS PO SCH (21:56)
[2022-09-17] MEDS: THIAMINE HCL 100 MG TABLET (FP) PO SCH (21:56)
[2022-09-18] MEDS: METHOCARBAMOL 500 MG TABLET PO PRN ×2 (03:16→22:47)
[2022-09-18] MEDS: hydrOXYzine PAMOATE 25 MG CAPSULE (FP) PO PRN (03:16)
[2022-09-18] MEDS: chlordiazePOXIDE HCL 10 MG CAPSULE PO SCH ×2 (06:07→17:41)
[2022-09-18] MEDS ORDERED: methaDONE HCL 10 MG TABLET (FOR DETOX USE ONLY) PO ONE (10:00)
[2022-09-18] MEDS: PRENATAL VITAMINS W/ FOLIC ACID TABLET (FP) PO SCH (10:33)
[2022-09-18] MEDS: FLUoxetine HCL 10 MG CAPSULE PO SCH (10:34)
[2022-09-18] MEDS: BUDESONIDE/FORMETEROL FUMARATE 80/4.5 mcg INHALER IH SCH ×2 (10:34→22:48)
[2022-09-18] MEDS: ALBUTEROL SO4 HFA INHALER IH PRN ×2 (12:50→17:41)
[2022-09-18] MEDS: TIOTROPIUM BROMIDE 2.5 MCG (SPIRIVA) RESPIMAT INHALER IH SCH (14:10)
[2022-09-18] MEDS: CHLORTHALIDONE 25 MG TABLET PO SCH (14:25)
[2022-09-18] MEDS ORDERED: cloNIDine HCL 0.1 MG TABLET PO PRN (21:10)
[2022-09-18] MEDS ORDERED: P-EPHED 60MG/TRIPROLIDI 2.5MG TABLET PO PRN (22:16)
[2022-09-18] MEDS: MONTELUKAST NA 10 MG TABLET PO SCH (22:47)
[2022-09-18] MEDS: THIAMINE HCL 100 MG TABLET (FP) PO SCH (22:47)
[2022-09-18] MEDS: MELATONIN 5 MG TABLETS PO SCH (22:47)
[2022-09-19] MEDS ORDERED: chlordiazePOXIDE HCL 10 MG CAPSULE PO ONE (05:00)
[2022-09-19] MEDS: PRENATAL VITAMINS W/ FOLIC ACID TABLET (FP) PO SCH (10:40)
[2022-09-19] MEDS: BUDESONIDE/FORMETEROL FUMARATE 80/4.5 mcg INHALER IH SCH ×2 (10:40→21:51)
[2022-09-19] MEDS: TIOTROPIUM BROMIDE 2.5 MCG (SPIRIVA) RESPIMAT INHALER IH SCH (10:40)
[2022-09-19] MEDS: FLUoxetine HCL 10 MG CAPSULE PO SCH (10:40)
[2022-09-19] MEDS: CHLORTHALIDONE 25 MG TABLET PO SCH (10:40)
[2022-09-19] MEDS: THIAMINE HCL 100 MG TABLET (FP) PO SCH (21:51)
[2022-09-19] MEDS: MELATONIN 5 MG TABLETS PO SCH (21:51)
[2022-09-19] MEDS: MONTELUKAST NA 10 MG TABLET PO SCH (21:51)
[2022-09-19] MEDS: hydrOXYzine PAMOATE 25 MG CAPSULE (FP) PO PRN (21:53)
[2022-09-19] MEDS: METHOCARBAMOL 500 MG TABLET PO PRN (21:53)
[2022-09-20] MEDS ORDERED: chlordiazePOXIDE HCL 10 MG CAPSULE PO ONE (06:00)
[2022-09-20] MEDS: CHLORTHALIDONE 25 MG TABLET PO SCH (09:45)
[2022-09-20] MEDS: PRENATAL VITAMINS W/ FOLIC ACID TABLET (FP) PO SCH (09:46)
[2022-09-20] MEDS: BUDESONIDE/FORMETEROL FUMARATE 80/4.5 mcg INHALER IH SCH ×2 (09:46→21:20)
[2022-09-20] MEDS: FLUoxetine HCL 10 MG CAPSULE PO SCH (09:46)
[2022-09-20] MEDS: TIOTROPIUM BROMIDE 2.5 MCG (SPIRIVA) RESPIMAT INHALER IH SCH (09:46)
[2022-09-20] MEDS: MONTELUKAST NA 10 MG TABLET PO SCH (21:17)
[2022-09-20] MEDS: MELATONIN 5 MG TABLETS PO SCH (21:18)
[2022-09-20] MEDS: THIAMINE HCL 100 MG TABLET (FP) PO SCH (21:18)
[2022-09-21 08:48] VITALS: BP 106/66; PULSE 85; RESP 16; TEMP 98.9
== END 2022-09-21 10:25 | disposition home or self-care (01) | DRG 773 ==
LOC: YASAS 13:20 → Y3N 16:14
PROVIDERS: ADMIT Allergy & Immunology; ATTEND Surgery
PROC: HZ2ZZZZ Detoxification Services for Substance Abuse Treatment (ICD-10-PCS; principal; 2022-09-14)
DX: F11.23 Opioid dependence with withdrawal (principal); F10.230 Alcohol dependence with withdrawal, uncomplicated; F14.20 Cocaine dependence, uncomplicated; F19.24 Other psychoactive substance dependence with psychoactive substance-induced mood disorder; E88.09 Other disorders of plasma-protein metabolism, not elsewhere classified; G47.00 Insomnia, unspecified; J44.9 Chronic obstructive pulmonary disease, unspecified; J45.20 Mild intermittent asthma, uncomplicated; K21.9 Gastro-esophageal reflux disease without esophagitis; R11.12 Projectile vomiting; R63.4 Abnormal weight loss; Z68.1 Body mass index [BMI] 19.9 or less, adult; Z87.891 Personal history of nicotine dependence; Z59.01 Sheltered homelessness
CPT/HCPCS: 36415; 80053; 85027; 86780; 87811; 93005; 93010; 94640; C9803-CS; Q0162; U0003; U0005